=== PATIENT | male | born 1985 | race Caucasian/White ===

== ENCOUNTER 2018-06-02 14:33 | Emergency (ER) | payer MEDICAID, MEDICARE, OTHER ==
[2018-06-02 14:43] VITALS: RESP 18
[2018-06-02] MEDS ORDERED: MORPHINE SULFATE 4 MG/ML SYRINGE IM STA (14:50)
--- NOTE | 2018-06-02 14:54 | ED ---
General Adult HPI - General Chief complaint: Urogenital Stated complaint: Male Gu Time Seen by Provider: 06/02/18 14:45 Source: patient, RN notes reviewed Mode of arrival: ambulatory Limitations: no limitations - History of Present Illness Initial comments: Patient 33-year-old male presented to the emergency room today with a chief complaint of right testicular vein ulcer yesterday at noon. Patient states that he noticed some discomfort starting around noon yesterday. Patient states that pain has persisted and worsened today. States been located on the right side. States worse with ambulation. Patient denies any other complaints or symptoms. Patient denies any recent fever, chills, shortness of breath, chest pain, back pain, abdominal pain, nausea or vomiting, constipation or diarrhea, headaches or visual changes, or any other complaints. - Related Data Previous Rx's Medication Instructions Recorded Doxycycline Hyclate [Vibramycin] 100 mg PO BID 10 Days cap 06/02/18 Phenazopyridine [Pyridium] 100 mg PO TID 3 Days day 06/02/18 Allergies Allergy/AdvReac Type Severity Reaction Status Date / Time haloperidol [From Haldol] Allergy Unknown Verified 06/02/18 14:44 haloperidol lactate Allergy Unknown Verified 06/02/18 14:44 [From Haldol] Review of Systems ROS Statement: Those systems with pertinent positive or pertinent negative responses have been documented in the HPI. ROS Other: All systems not noted in ROS Statement are negative. Past Medical History Past Medical History: No Reported History History of Any Multi-Drug Resistant Organisms: None Reported Past Surgical History: No Surgical Hx Reported Past Psychological History: Bipolar, Depression, Schizoaffective Disorder, Schizophrenia Smoking Status: Current every day smoker Past Alcohol Use History: Occasional Past Drug Use History: None Reported - Past Family History Father Family Medical History: No Reported History Mother Family Medical History: No Reported History General Exam - General Exam Comments Initial Comments: General: The patient is awake and alert, in no distress, and does not appear acutely ill. Eye: Pupils are equal, round and reactive to light, extra-ocular movements are intact. No nystagmus. There is normal conjunctiva bilaterally. No signs of icterus. Ears, nose, mouth and throat: There are moist mucous membranes and no oral lesions. Neck: The neck is supple. Gastrointestinal: Soft, non-distended, non-tender abdomen without masses or organomegaly noted. There is no rebound or guarding present. No CVA tenderness. Musculoskeletal: Normal ROM, no tenderness. Strength 5/5. Sensation intact. Neurological: A&O x 3. CN II-XII intact, There are no obvious motor or sensory deficits. Coordination appears grossly intact. Speech is normal. Skin: Skin is warm and dry and no rashes or lesions are noted. Psychiatric: Cooperative, appropriate mood & affect, normal judgment. : Circumcised male. Tender palpation right testicle. Mild swelling. Limitations: no limitations Course Vital Signs 06/02/18 14:42 Temperature 97.9 F Pulse Rate 102 H Respiratory 18 Rate Blood Pressure 118/66 O2 Sat by Pulse 100 Oximetry Medical Decision Making - Medical Decision Making Patient's ultrasound reviewed and does show evidence for a epididymitis or orchitis on the right side. No evidence for testicular torsion. Patient's urinalysis review does show 63 white cells. Patient states there is some concern for possible STD. Patient does have cultures that are pending at this time. Patient will be given dose of Rocephin and azithromycin here in emergency room. Patient will be discharged home on doxycycline. He is advised follow-up with family physician. Advised no sexual contact until symptoms have resolved. Advised return to emergency room if any symptoms increase worsen or for any other concerns. - Lab Data Lab Results 06/02/18 Range/Units 15:50 Urine Color Dark Yellow Urine Appearance Clear (Clear) Urine pH 6.0 (5.0-8.0) Ur Specific [place] 1.027 (1.001-1.035) Urine Protein 1+ H (Negative) Urine Glucose (UA) 3+ H (Negative) Urine Ketones 1+ H (Negative) Urine Blood Negative (Negative) Urine Nitrite Negative (Negative) Urine Bilirubin 1+ H (Negative) Urine Urobilinogen 12.0 (<2.0) mg/dL Ur Leukocyte Esterase Large H (Negative) Urine WBC 63 H (0-5) /hpf Ur Squamous Epith Cells <1 (0-4) /hpf Urine Bacteria Rare H (None) /hpf Urine Mucus Few H (None) /hpf Disposition Clinical Impression: Epididymitis Disposition: HOME SELF-CARE Condition: Good Instructions: Epididymo-Orchitis (ED) Additional Instructions: Please use medication as discussed. Please follow-up with family doctor in the next 2 days. Please return to emergency room if the symptoms increase or worsen or for any other concerns. Prescriptions: Doxycycline Hyclate [Vibramycin] 100 mg PO BID 10 Days cap Phenazopyridine [Pyridium] 100 mg PO TID 3 Days day Is patient prescribed a controlled substance at d/c from ED?: No Referrals: None,Stated [Primary Care Provider] - 1-2 days Gerry Fernandez MD [STAFF PHYSICIAN] - 1-2 days Dean Loomis MD [STAFF PHYSICIAN] - 1-2 days Time of Disposition: 16:51
--- NOTE | 2018-06-02 16:18 | US ---
EXAMINATION TYPE: US scrotum with doppler. Grayscale and color Doppler Duplex imaging performed of t hilario scrotum. DATE OF EXAM: 06/02/2018 COMPARISON: NONE CLINICAL HISTORY: Pain. EXAM MEASUREMENTS: TESTICLES: Right Testicle: 4.0 x 2.0 x 4.1 cm Left Testicle: 4.4 x 1.7 x 3.2 cm EPIDIDYMIS HEAD: Right Epididymis: 0.9 cm Left Epididymis: 1.0 cm Doppler performed to assess for testicular vascularity; good bilateral color flow and waveforms are s een. However, there does appear to be increased flow to the right testicle and to tissue inferior to testicle. Presence of hydroceles: Yes, small bilaterally Presence of varicoceles: No Subcentimeter cysts noted bilateral epididymis'. Comparison images initially performed. IMPRESSION: Asymmetric slight increased flow to right testicle could reflect product of right-sided e pididymitis/orchitis if this is the side of patient's pain. Correlate clinically.
[2018-06-02 16:26] LABS: Appearance,Urine Clear (Clear); Bacteria,Urine Rare /hpf; Bilirubin,Urine 1+ (Negative); Blood,Urine Negative (Negative); Color,Urine Dark Yellow; Glucose,Urine (UA) 3+ (Negative); Ketones,Urine 1+ (Negative); Leukocyte Esterase,Urine Large (Negative); Mucus,Urine Few /hpf; Nitrite,Urine Negative (Negative); Protein,Urine 1+ (Negative); Specific Gravity,Urine 1.027 (1.001-1.035); Squamous Epithelial Cell,Urine <1 /hpf (0-4); WBC,Urine 63 /hpf (0-5)
[2018-06-02] MEDS ORDERED: AZITHROMYCIN 500 MG TAB PO STA (16:47)
[2018-06-02] MEDS ORDERED: cefTRIAXone 250 MG VIAL IM STA (16:47)
[2018-06-02 17:17] VITALS: BP 127/89; PULSE 87; TEMP 97.4
[2018-06-04 14:08] LABS: C. trachomatis,PCR Negative (Neg,Equiv); Chlamydia trachomatis Source Urine; N. gonorrhoeae,PCR Negative (Neg,Equiv); Neisseria Source Urine
== END 2018-06-02 17:17 | disposition home or self-care (01) ==
LOC: EC 14:33
DX: N45.1 Epididymitis (principal); F17.200 Nicotine dependence, unspecified, uncomplicated; Z88.8 Allergy status to other drugs, medicaments and biological substances
CPT/HCPCS: 81001; 87491; 87591; 87086; 87077; 87186; 93975; 76870; 99284; 96372 ×2; J2270; J0696

== ENCOUNTER 2018-06-16 13:32 | Inpatient (IN) | payer MEDICARE ==
[2018-06-16] MEDS ORDERED: SODIUM CHLORIDE 0.9% 2,000 ML IV ONE (13:59)
--- NOTE | 2018-06-16 14:22 | ED ---
Psych HPI - General Chief Complaint: Psychiatric Symptoms Stated Complaint: MENTAL HEALTH Time Seen by Provider: 06/16/18 13:32 Source: patient, RN notes reviewed Mode of arrival: ambulatory - History of Present Illness Initial Comments: This is a 33-year-old male history depression who states he is depressed wants comes on he did cut his right antecubital space 3 days ago with a knife. He states he was in bed the past several days not eating and drinking very much. He states that he believes his body turned black after this initial episode. He states he did lose a lot of blood. He still states he is depressed and suicidal. He denies any drug or alcohol use. MD Complaint: suicidal ideation, feels depressed - Related Data Previous Rx's Medication Instructions Recorded Doxycycline Hyclate [Vibramycin] 100 mg PO BID 10 Days cap 06/02/18 Phenazopyridine [Pyridium] 100 mg PO TID 3 Days day 06/02/18 Allergies Allergy/AdvReac Type Severity Reaction Status Date / Time haloperidol [From Haldol] Allergy Unknown Verified 06/16/18 13:45 haloperidol lactate Allergy Unknown Verified 06/16/18 13:45 [From Haldol] Review of Systems ROS Statement: Those systems with pertinent positive or pertinent negative responses have been documented in the HPI. ROS Other: All systems not noted in ROS Statement are negative. Past Medical History Past Medical History: No Reported History History of Any Multi-Drug Resistant Organisms: None Reported Past Surgical History: No Surgical Hx Reported Past Psychological History: Bipolar, Depression, Schizoaffective Disorder, Schizophrenia Smoking Status: Current every day smoker Past Alcohol Use History: Occasional Past Drug Use History: None Reported - Past Family History Father Family Medical History: No Reported History Mother Family Medical History: No Reported History General Exam - General Exam Comments Initial Comments: This is a well-developed well-nourished awake alert oriented times female Limitations: no limitations General appearance: alert, in no apparent distress Head exam: Present: atraumatic, normocephalic, normal inspection Eye exam: Present: normal appearance, PERRL, EOMI. Absent: scleral icterus, conjunctival injection, periorbital swelling ENT exam: Present: mucous membranes dry Neck exam: Present: normal inspection. Absent: tenderness, meningismus, lymphadenopathy Respiratory exam: Present: normal lung sounds bilaterally. Absent: respiratory distress, wheezes, rales, rhonchi, stridor Cardiovascular Exam: Present: regular rate, normal rhythm, normal heart sounds. Absent: systolic murmur, diastolic murmur, rubs, gallop, clicks GI/Abdominal exam: Present: soft, normal bowel sounds. Absent: distended, tenderness, guarding, rebound, rigid Extremities exam: Present: full ROM, normal capillary refill, other (There is approximately 3 cm laceration of the antecubital space on the left side no active bleeding no formed by seen no evidence of any infection. It does appear to be clear/clean). Absent: tenderness, pedal edema, joint swelling, calf tenderness Back exam: Present: normal inspection Neurological exam: Present: alert, oriented X3, CN II-XII intact Psychiatric exam: Present: depressed, suicidal ideation Skin exam: Present: warm, dry, intact, normal color. Absent: rash Course Vital Signs 06/16/18 13:40 Temperature 97.8 F Pulse Rate 83 Respiratory 16 Rate Blood Pressure 118/69 O2 Sat by Pulse 98 Oximetry Medical Decision Making - Medical Decision Making The patient is feeling improved he was evaluated by psychiatric service and will be admitted for inpatient treatment. At this time the wound is 3 days old and will be treated conservatively healing. - Lab Data Result diagrams: 06/16/18 14:00 06/16/18 14:00 Lab Results 06/16/18 06/16/18 06/16/18 Range/Units 14:00 14:00 14:00 WBC 10.6 (3.8-10.6) k/uL RBC 3.50 L (4.30-5.90) m/uL Hgb 11.3 L (13.0-17.5) gm/dL Hct 32.0 L (39.0-53.0) % MCV 91.4 (80.0-100.0) fL MCH 32.4 (25.0-35.0) pg MCHC 35.5 (31.0-37.0) g/dL RDW 14.6 (11.5-15.5) % Plt Count 296 (150-450) k/uL Neutrophils % 81 % Lymphocytes % 12 % Monocytes % 6 % Eosinophils % 0 % Basophils % 0 % Neutrophils # 8.6 H (1.3-7.7) k/uL Lymphocytes # 1.2 (1.0-4.8) k/uL Monocytes # 0.6 (0-1.0) k/uL Eosinophils # 0.0 (0-0.7) k/uL Basophils # 0.0 (0-0.2) k/uL Manual Slide Review Performed Hyperchromasia Slight Sodium 131 L (137-145) mmol/L Potassium 4.5 (3.5-5.1) mmol/L Chloride 98 (98-107) mmol/L Carbon Dioxide 20 L (22-30) mmol/L Anion Gap 13 mmol/L BUN 24 H (9-20) mg/dL Creatinine 0.95 (0.66-1.25) mg/dL Est GFR (CKD-EPI)AfAm >90 (>60 ml/min/1.73 sqM) Est GFR (CKD-EPI)NonAf >90 (>60 ml/min/1.73 sqM) Glucose 77 (74-99) mg/dL Calcium 9.1 (8.4-10.2) mg/dL Magnesium 2.1 (1.6-2.3) mg/dL Total Bilirubin 0.7 (0.2-1.3) mg/dL AST 40 (17-59) U/L ALT 45 (21-72) U/L Alkaline Phosphatase 47 (38-126) U/L Total Creatine Kinase 87 (55-170) U/L CK-MB (CK-2) 0.9 (0.0-2.4) ng/mL CK-MB (CK-2) Rel Index 1.0 Total Protein 5.6 L (6.3-8.2) g/dL Albumin 3.7 (3.5-5.0) g/dL Urine Opiates Screen (NotDetected) Ur Oxycodone Screen (NotDetected) Urine Methadone Screen (NotDetected) Ur Propoxyphene Screen (NotDetected) Ur Barbiturates Screen (NotDetected) U Tricyclic Antidepress (NotDetected) Ur Phencyclidine Scrn (NotDetected) Ur Amphetamines Screen (NotDetected) U Methamphetamines Scrn (NotDetected) U Benzodiazepines Scrn (NotDetected) Urine Cocaine Screen (NotDetected) U Marijuana (THC) Screen (NotDetected) 06/16/18 Range/Units 15:00 WBC (3.8-10.6) k/uL RBC (4.30-5.90) m/uL Hgb (13.0-17.5) gm/dL Hct (39.0-53.0) % MCV (80.0-100.0) fL MCH (25.0-35.0) pg MCHC (31.0-37.0) g/dL RDW (11.5-15.5) % Plt Count (150-450) k/uL Neutrophils % % Lymphocytes % % Monocytes % % Eosinophils % % Basophils % % Neutrophils # (1.3-7.7) k/uL Lymphocytes # (1.0-4.8) k/uL Monocytes # (0-1.0) k/uL Eosinophils # (0-0.7) k/uL Basophils # (0-0.2) k/uL Manual Slide Review Hyperchromasia Sodium (137-145) mmol/L Potassium (3.5-5.1) mmol/L Chloride (98-107) mmol/L Carbon Dioxide (22-30) mmol/L Anion Gap mmol/L BUN (9-20) mg/dL Creatinine (0.66-1.25) mg/dL Est GFR (CKD-EPI)AfAm (>60 ml/min/1.73 sqM) Est GFR (CKD-EPI)NonAf (>60 ml/min/1.73 sqM) Glucose (74-99) mg/dL Calcium (8.4-10.2) mg/dL Magnesium (1.6-2.3) mg/dL Total Bilirubin (0.2-1.3) mg/dL AST (17-59) U/L ALT (21-72) U/L Alkaline Phosphatase (38-126) U/L Total Creatine Kinase (55-170) U/L CK-MB (CK-2) (0.0-2.4) ng/mL CK-MB (CK-2) Rel Index Total Protein (6.3-8.2) g/dL Albumin (3.5-5.0) g/dL Urine Opiates Screen Not Detected (NotDetected) Ur Oxycodone Screen Not Detected (NotDetected) Urine Methadone Screen Not Detected (NotDetected) Ur Propoxyphene Screen Not Detected (NotDetected) Ur Barbiturates Screen Not Detected (NotDetected) U Tricyclic Antidepress Not Detected (NotDetected) Ur Phencyclidine Scrn Not Detected (NotDetected) Ur Amphetamines Screen Not Detected (NotDetected) U Methamphetamines Scrn Not Detected (NotDetected) U Benzodiazepines Scrn Not Detected (NotDetected) Urine Cocaine Screen Not Detected (NotDetected) U Marijuana (THC) Screen Not Detected (NotDetected) Disposition Clinical Impression: Depression, Suicidal ideation, Laceration of left upper arm Disposition: TRANSFER TO PSYCH HOSP/UNIT Condition: Stable Referrals: None,Stated [Primary Care Provider] - 1-2 days
[2018-06-16 14:23] LABS: ALT 45 U/L (21-72); AST 40 U/L (17-59); Albumin 3.7 g/dL (3.5-5.0); Alkaline Phosphatase 47 U/L (38-126); Anion Gap 13 mmol/L; Blood Urea Nitrogen 24 mg/dL (9-20); Calcium 9.1 mg/dL (8.4-10.2); Carbon Dioxide 20 mmol/L (22-30); Chloride 98 mmol/L (98-107); Glucose 77 mg/dL (74-99); Magnesium 2.1 mg/dL (1.6-2.3); Potassium 4.5 mmol/L (3.5-5.1); Sodium 131 mmol/L (137-145); Total Bilirubin 0.7 mg/dL (0.2-1.3); Total Protein 5.6 g/dL (6.3-8.2)
[2018-06-16 14:26] LABS: Basophils % (A) 0 %; Eosinophils % (A) 0 %; HGB 11.3 gm/dL (13.0-17.5); Hyperchromasia Slight; Lymphocytes # (A) 1.2 k/uL (1.0-4.8); Lymphocytes % (A) 12 %; MCH 32.4 pg (25.0-35.0); MCHC 35.5 g/dL (31.0-37.0); MCV 91.4 fL (80.0-100.0); Mean Platelet Volume 7.4; Monocytes # (A) 0.6 k/uL (0-1.0); Monocytes % (A) 6 %; Neutrophils # (A) 8.6 k/uL (1.3-7.7); Neutrophils % (A) 81 %; Platelet Count 296 k/uL (150-450); RDW 14.6 % (11.5-15.5); WBC 10.6 k/uL (3.8-10.6)
[2018-06-16 14:40] LABS: Creatine Kinase MB 0.9 ng/mL (0.0-2.4)
[2018-06-16 15:42] LABS: Amphetamine Screen,Urine Not Detected (NotDetected); Barbiturate Screen,Urine Not Detected (NotDetected); Benzodiazepines Screen,Urine Not Detected (NotDetected); Cocaine Screen,Urine Not Detected (NotDetected); Methadone Screen, Urine Not Detected (NotDetected); Opiate Screen,Urine Not Detected (NotDetected); Oxycodone Screen, Urine Not Detected (NotDetected); Phencyclidine Screen,Urine Not Detected (NotDetected); Tricyclic Antidepressant,Urine Not Detected (NotDetected); Urn Cannabinoid Scrn Not Detected (NotDetected)
[2018-06-16] MEDS ORDERED: PNEUMOCOCCAL VACC-PNEUMOVAX 23 25 MCG/0.5 ML VIAL IM ONE (16:53)
[2018-06-16] MEDS ORDERED: TETANUS-DIPHTHERIA TOX (PF) 0.5 ML VIAL IM ONE (17:51)
[2018-06-16] MEDS ORDERED: ZIPRASIDONE 20 MG VIAL IM PRN (18:01)
[2018-06-16] MEDS ORDERED: MAG HYDROX/AL HYDROX/SIMETH 30 ML CUP PO PRN (18:01)
[2018-06-16] MEDS ORDERED: MAGNESIUM HYDROXIDE 2,400 MG/10 ML CUP PO PRN (18:01)
[2018-06-16] MEDS ORDERED: LORazepam 2 MG/ML INJ IM PRN (18:04)
--- NOTE | 2018-06-16 18:07 | P.HPMEDMHU ---
History of Present Illness H&P Date: 06/16/18 Chief Complaint: consult for HPI The patient is a 33-year-old male with a past history of bipolar disorder with psychotic features who states that he is increasingly depressed and came here due to suicidal ideation and trying to kill himself. Apparently the patient started his left antecubital fossa 3 days ago and reportedly passed out. The patient reported to the intake nurse that he was aliens then brought back because his blood was too thick. The patient reports ongoing command hallucinations. She reports being compliant with his Zyprexa but has been off his Lexapro for at least 2 weeks. Patient denies any other complaints, review of his chart indicates the patient was recently here proximally 2 weeks ago where he was diagnosed with epididymal orchitis and discharged home on doxycycline, also apparently the patient had a Klebsiella oxytoca urinary tract infection that was also sensitive to tetracyclines. Patient reports a history of recreational drug abuse reports to using methamphetamine approximately 3 days ago, he denies any alcohol use. On review of admission labs patient is noted to be mildly anemic with hemoglobin of 11.3, and mildly hyponatremic with a sodium of 131. UDS was negative Past Medical History Past Medical History: No Reported History History of Any Multi-Drug Resistant Organisms: None Reported Past Surgical History: No Surgical Hx Reported Past Anesthesia/Blood Transfusion Reactions: No Reported Reaction Past Psychological History: Bipolar, Depression, Schizoaffective Disorder, Schizophrenia Smoking Status: Current every day smoker Past Alcohol Use History: Occasional Additional Past Alcohol Use History / Comment(s): He is a smoker one pack per day for 12 years. Past Drug Use History: None Reported Additional Drug Use History / Comment(s): history of etoh and cocaine abuse - Past Family History Father Family Medical History: No Reported History Mother Family Medical History: No Reported History Medications and Allergies Home Medications Medication Instructions Recorded Confirmed Type Escitalopram [Lexapro] 20 mg PO DAILY 06/16/18 06/16/18 History OLANZapine [ZyPREXA] 20 mg PO HS 06/16/18 06/16/18 History Allergies Allergy/AdvReac Type Severity Reaction Status Date / Time haloperidol [From Haldol] Allergy Unknown Verified 06/16/18 16:52 haloperidol lactate Allergy Unknown Verified 06/16/18 16:52 [From Haldol] Physical Exam Vitals: Vital Signs Temp Pulse Pulse Resp BP BP Pulse Ox 06/16/18 16:42 97.3 F L 101 H 18 107/60 06/16/18 16:14 97.8 F 81 16 120/63 100 06/16/18 13:40 97.8 F 83 16 118/69 98 Intake and Output 06/16/18 06/16/18 06/16/18 06:59 14:59 22:59 Other: Weight 68.039 kg 67.727 kg Constitutional: No acute distress, conversant, pleasant Eyes: Anicteric sclerae, moist conjunctiva, no lid-lag, PERRLA ENMT: NC/AT,Oropharynx clear, no erythema, exudates Neck:Supple, FROM, no masses, or JVD, No carotid bruits; No thyromegaly Lungs: Clear to auscultation, Clear to percussion, Normal respiratory effort, no accessory muscle use Cardiovascular: Heart regular in rate and rhythm, No murmurs, gallops, or rubs no peripheral edema Abdominal: Soft Nontender, nom distended, no guarding, no rebound or rigidity, Normoactive bowel sounds No hepatomegaly, No splenomegaly, No palpable mass No abdominal wall hernia noted Skin: Left antecubital laceration measuring approximately 4 cm that appears deeper on the medial side of the laceration, there is beefy tissue, without any clear-cut sign of infection Extremities:No digital cyanosis No clubbing, Pedal pulses intact and symmetrical Radial pulses intact and symmetrical Normal gait and station, No calf tenderness Psychiatric: Alert and oriented to person, place and time, Appropriate affect Intact judgement Neuro: Muscles Strength 5/5 in all 4 extremities, Sensation to light touch grossly present throughout, Cranial nerves II-XII grossly intact. No focal sensory deficits Cranial Nerve Examination - Cranial Nerves Cranial Nerve II- Optic: Intact Cranial Nerve III- Oculomotor: Intact Cranial Nerve IV- Trochlear: Intact Cranial Nerve V- Trigeminal: Intact Cranial Nerve - Abducens: Intact Cranial Nerve VII- Facial: Intact Cranial Nerve VIII- Auditory: Intact Cranial Nerve IX- Glossopharyngeal: Intact Cranial Nerve X- Vagus: Intact Cranial Nerve XI- Accessory: Intact Cranial Nerve XII- Hypoglossal: Intact Results CBC & Chem 7: 06/16/18 14:00 06/16/18 14:00 Labs: Abnormal Lab Results - Last 24 Hours (Table) 06/16/18 06/16/18 Range/Units 14:00 14:00 RBC 3.50 L (4.30-5.90) m/uL Hgb 11.3 L (13.0-17.5) gm/dL Hct 32.0 L (39.0-53.0) % Neutrophils # 8.6 H (1.3-7.7) k/uL Sodium 131 L (137-145) mmol/L Carbon Dioxide 20 L (22-30) mmol/L BUN 24 H (9-20) mg/dL Total Protein 5.6 L (6.3-8.2) g/dL Thrombosis Risk Factor Assmnt - Choose All That Apply Any of the Below Risk Factors Present?: No Other Risk Factors: No Other congenital or acquired thrombophilia - If yes, enter type in comment: No Thrombosis Risk Factor Assessment Level: Very Low Risk Assessment and Plan (1) Schizo-affective psychosis Current Visit: Yes Status: Acute Code(s): F25.9 - SCHIZOAFFECTIVE DISORDER, UNSPECIFIED SNOMED Code(s): 53430616 (2) Suicidal ideation Current Visit: Yes Status: Acute Code(s): R45.851 - SUICIDAL IDEATIONS SNOMED Code(s): 7282878 (3) Depression Current Visit: Yes Status: Acute Code(s): F32.9 - MAJOR DEPRESSIVE DISORDER , SINGLE EPISODE, UNSPECIFIED SNOMED Code(s): 25196446 (4) Laceration of left upper arm Current Visit: Yes Status: Acute Code(s): S41.112A - LACERATION W/O FOREIGN BODY OF LEFT UPPER ARM, INIT ENCNTR SNOMED Code(s): 211718415 (5) Hyponatremia Current Visit: Yes Status: Acute Code(s): E87.1 - HYPO-OSMOLALITY AND HYPONATREMIA SNOMED Code(s): 05003236 Plan: The patient is admitted to the mental health unit for acute exacerbation of psychosis of his schizoaffective disorder, will defer to primary team regarding ongoing use of psychotropic agents along with CBT for his treatment. Given patient's severe left antecubital laceration will consult general surgery as it appears the patient may need to have sutures, we'll give the patient IM tetanus shot and deferred to general surgery regarding wound care and follow-up. Otherwise patient appears medically stable we'll plan to sign off. For further questions or concerns please don't hesitate to contact the sound inpatient team. We Appreciate the opportunity to be involved ongoing care of this patient
[2018-06-16] MEDS: OLANZapine 10 MG TAB PO SCH (20:21)
[2018-06-17] MEDS: NICOTINE 14MG/24HR PATCH TRANSDERM SCH (08:36)
[2018-06-17] MEDS: ESCITALOPRAM 5 MG TAB PO SCH (11:03)
--- NOTE | 2018-06-17 11:14 | P.HP ---
Psychiatric H&P - . H&P Date: 06/17/18 History & Physical: Allergies Allergy/AdvReac Type Severity Reaction Status Date / Time haloperidol [From Haldol] Allergy Unknown Verified 06/16/18 16:52 haloperidol lactate Allergy Unknown Verified 06/16/18 16:52 [From Haldol] Vital Signs Temp 97.8 F 06/17/18 06:38 Pulse 70 06/17/18 06:38 Resp 15 06/17/18 06:38 BP 90/55 06/17/18 06:38 Pulse Ox 100 06/16/18 16:14 Intake & Output 06/16/18 06/17/18 06/17/18 18:59 06:59 18:59 Weight 67.727 kg 68.9 kg Laboratory Last Values WBC 10.6 k/uL (3.8-10.6) 06/16/18 14:00 RBC 3.50 m/uL (4.30-5.90) L 06/16/18 14:00 Hgb 11.3 gm/dL (13.0-17.5) L 06/16/18 14:00 Hct 32.0 % (39.0-53.0) L 06/16/18 14:00 MCV 91.4 fL (80.0-100.0) 06/16/18 14:00 MCH 32.4 pg (25.0-35.0) 06/16/18 14:00 MCHC 35.5 g/dL (31.0-37.0) 06/16/18 14:00 RDW 14.6 % (11.5-15.5) 06/16/18 14:00 Plt Count 296 k/uL (150-450) 06/16/18 14:00 Neutrophils % 81 % 06/16/18 14:00 Lymphocytes % 12 % 06/16/18 14:00 Monocytes % 6 % 06/16/18 14:00 Eosinophils % 0 % 06/16/18 14:00 Basophils % 0 % 06/16/18 14:00 Neutrophils # 8.6 k/uL (1.3-7.7) H 06/16/18 14:00 Lymphocytes # 1.2 k/uL (1.0-4.8) 06/16/18 14:00 Monocytes # 0.6 k/uL (0-1.0) 06/16/18 14:00 Eosinophils # 0.0 k/uL (0-0.7) 06/16/18 14:00 Basophils # 0.0 k/uL (0-0.2) 06/16/18 14:00 Manual Slide Review Performed 06/16/18 14:00 Hyperchromasia Slight 06/16/18 14:00 Sodium 131 mmol/L (137-145) L 06/16/18 14:00 Potassium 4.5 mmol/L (3.5-5.1) 06/16/18 14:00 Chloride 98 mmol/L (98-107) 06/16/18 14:00 Carbon Dioxide 20 mmol/L (22-30) L 06/16/18 14:00 Anion Gap 13 mmol/L 06/16/18 14:00 BUN 24 mg/dL (9-20) H 06/16/18 14:00 Creatinine 0.95 mg/dL (0.66-1.25) 06/16/18 14:00 Est GFR (CKD-EPI)AfAm >90 (>60 ml/min/1.73 sqM) 06/16/18 14:00 Est GFR (CKD-EPI)NonAf >90 (>60 ml/min/1.73 sqM) 06/16/18 14:00 Glucose 77 mg/dL (74-99) 06/16/18 14:00 Calcium 9.1 mg/dL (8.4-10.2) 06/16/18 14:00 Magnesium 2.1 mg/dL (1.6-2.3) 06/16/18 14:00 Total Bilirubin 0.7 mg/dL (0.2-1.3) 06/16/18 14:00 AST 40 U/L (17-59) 06/16/18 14:00 ALT 45 U/L (21-72) 06/16/18 14:00 Alkaline Phosphatase 47 U/L (38-126) 06/16/18 14:00 Total Creatine Kinase 87 U/L (55-170) 06/16/18 14:00 CK-MB (CK-2) 0.9 ng/mL (0.0-2.4) 06/16/18 14:00 CK-MB (CK-2) Rel Index 1.0 06/16/18 14:00 Total Protein 5.6 g/dL (6.3-8.2) L 06/16/18 14:00 Albumin 3.7 g/dL (3.5-5.0) 06/16/18 14:00 Triglycerides 187 mg/dL (<150) H 06/16/18 14:00 Cholesterol 146 mg/dL (<200) 06/16/18 14:00 LDL Cholesterol, Calc 69 mg/dL (0-99) 06/16/18 14:00 HDL Cholesterol 40 mg/dL (40-60) 06/16/18 14:00 TSH 1.350 mIU/L (0.465-4.680) 06/16/18 14:00 Urine Opiates Screen Not Detected (NotDetected) 06/16/18 15:00 Ur Oxycodone Screen Not Detected (NotDetected) 06/16/18 15:00 Urine Methadone Screen Not Detected (NotDetected) 06/16/18 15:00 Ur Propoxyphene Screen Not Detected (NotDetected) 06/16/18 15:00 Ur Barbiturates Screen Not Detected (NotDetected) 06/16/18 15:00 U Tricyclic Antidepress Not Detected (NotDetected) 06/16/18 15:00 Ur Phencyclidine Scrn Not Detected (NotDetected) 06/16/18 15:00 Ur Amphetamines Screen Not Detected (NotDetected) 06/16/18 15:00 U Methamphetamines Scrn Not Detected (NotDetected) 06/16/18 15:00 U Benzodiazepines Scrn Not Detected (NotDetected) 06/16/18 15:00 Urine Cocaine Screen Not Detected (NotDetected) 06/16/18 15:00 U Marijuana (THC) Screen Not Detected (NotDetected) 06/16/18 15:00 06/17/18 11:14 Identifying Information Patient is 33 year old male. He is single, no children. He lives alone in a one bedroom apartment. He supports himself with SSI. Chief complaint I tried to kill my self History of presenting illness Patient reports to have cut himself three days ago. He reports to have bled a lot and claims every time he woke up he passed out. He eventually was able to call for ambulance. He denies current suicidal or homicidal ideations. He however says he has no desire to live. He claims to have been depressed over the past two months. He reports low energy and low motivation. He reports feeling frustrated and angry. He reports there is lot going on in his life. He says every body around him are against him. He reports feeling depressed about not being able to provide food for himself. He says money from his bank accounts is missing. He says lot of weird things are going on in his life. He claims to have relapsed on methamphetamine use three days ago. He says meth helps him with keeping him motivated. He reports feeling frustrated about his SSI income being cut down two weeks ago. He complains of hearing voices telling him to cut himself. He currently reports hearing voices telling him about hypnosis. He reports history of visual hallucinations five years ago and denies current visual hallucinations. He denies current symptoms of vivi. He reports being diagnosed with bipolar disorder around the age of 22. He currently reports feeling tired/drained and anxious. He denies current paranoid thoughts. He reports good appetite. He reports waking up from sleep due to having dreams about hypnosis. He however states he is able to return back to sleep with in 10 minutes. Reports being complaint with zyprexa as prescribed . He claims to have stopped taking his lexapro two weeks ago. Past psychiatric history Reports being started on psychiatric medications following his first hospitalization around the age of 22. He stated his first hospitalization was due to hearing voices. He reports 10 psychiatric hospitalizations since the age of 22. His last admission was three years ago he says. He says most of his hospitalizations were due to suicidal ideations. He claims to have overdosed on pills in 2007. He says he follows up with Dr. Go in [facility]. He was last seen at [facility] three weeks ago he says. Substance use history Reports use of all sorts of illicit drugs from the age of 13. He claims to have stopped using illicit drugs three years ago. He claims to have relapsed on methamphetamine three days ago. He claims to have used two hits of meth. He denies rehab treatments. Legal problems On parole until November 2018. Reports being released from group home in November 2017. His charges were possession of methamphetamine and running a drug house. Family psychiatric treatment history Denies Medical history Claims to have smashed head when he was [age] year old and received stitches. Allergies No Known drug allergies Social history Born in [place], [place]. Raised by mother until he was in sixth grade, raised by his father from seventh grade onwards. He describes his childhood being yohana. Denies child walker history of abuse. He reports having one full brother and two half brothers. Graduated high-school and claims to have attended college for less than an year. Mental status exam 33 Year old male. Appeared his stated age. Dressed in hospital gown. Fair grooming and hygiene. His left elbow has dressing covering his wound. Per surgery wound is too deep. He is pleasant and co-operative. He maintains good eye contact. No abnormal movements noted. His speech and thought process were goal directed. His mood is reported as drained/tired and affect appropriate. He reports auditory hallucinations. He denies visual hallucinations and paranoia. He is alert and oriented X 4. His insight and judgment are limited. Diagnosis Major depression recurrent type with psychotic features Methamphetamine abuse Plan 33-year-old male admitted emergency department with suicidal ideations. He signed voluntary treatment consent. Medicine consult for initial history physical examination psychosocial evaluation. Will continue his out patient medications zyprexa and lexapro. He is currently reluctant to try higher dose of zyprexa. Monitor for symptoms Will receive milieu therapy group therapy individual therapy occupational therapy recreational therapy and psycho education. Treatment goals: Medication stabilization Social work to assist with discharge plans Insight improvement and encourage treatment adherence. development of better coping skills and substance use counseling/groups Discharge with outpatient follow-up. Treatment goals: Symptom reduction with improvement of global functioning will continue to be free of suicide thoughts and behavior.
--- NOTE | 2018-06-17 11:32 | P.GSCN ---
History of Present Illness Consult date: 06/17/18 Reason for Consult: Left arm wound History of present illness: Patient admitted after self-induced injury to the left arm. He was having suicidal ideations and paranoia. Patient cut his left antecubital fossa with a kitchen knife. This occurred proximally 4 days ago. In the ER this was not closed because of the duration of time that had passed. Patient states initially he felt a little bit of numbness in his arm however that has all since resolved. No weakness of the hand or arm. States his pain is improving. No fevers. Wound per the nursing staff is improved from yesterday. Review of Systems The patient denies any acute changes in vision or hearing, no dysphagia or odynophagia, no chest pain or shortness of breath, no dysuria or hematuria, no headache, no runny nose, no rectal bleeding or melena, no unexplained weight loss Past Medical History Past Medical History: No Reported History History of Any Multi-Drug Resistant Organisms: None Reported Past Surgical History: No Surgical Hx Reported Past Anesthesia/Blood Transfusion Reactions: No Reported Reaction Past Psychological History: Bipolar, Depression, Schizoaffective Disorder, Schizophrenia Smoking Status: Current every day smoker Past Alcohol Use History: Occasional Additional Past Alcohol Use History / Comment(s): He is a smoker one pack per day for 12 years. Past Drug Use History: None Reported Additional Drug Use History / Comment(s): history of etoh and cocaine abuse - Past Family History Father Family Medical History: No Reported History Mother Family Medical History: No Reported History Medications and Allergies Home Medications Medication Instructions Recorded Confirmed Type Escitalopram [Lexapro] 20 mg PO DAILY 06/16/18 06/16/18 History OLANZapine [ZyPREXA] 20 mg PO HS 06/16/18 06/16/18 History Allergies Allergy/AdvReac Type Severity Reaction Status Date / Time haloperidol [From Haldol] Allergy Unknown Verified 06/16/18 16:52 haloperidol lactate Allergy Unknown Verified 06/16/18 16:52 [From Haldol] Surgical - Exam Vital Signs Temp Pulse Resp BP Pulse Ox 97.8 F 83 16 118/69 98 06/16/18 13:40 06/16/18 13:40 06/16/18 13:40 06/16/18 13:40 06/16/18 13:40 Physical exam: General: Well-developed, well-nourished HEENT: Normocephalic, sclerae nonicteric Abdomen: Nontender, nondistended Extremities: 4 x 1 cm laceration left antecubital fossa, no bleeding, no erythema, mild tenderness, no visible tendon injury Neuro: Alert and oriented Results - Labs 06/16/18 14:00 06/16/18 14:00 Abnormal Lab Results - Last 24 Hours (Table) 06/16/18 06/16/18 06/16/18 Range/Units 14:00 14:00 14:00 RBC 3.50 L (4.30-5.90) m/uL Hgb 11.3 L (13.0-17.5) gm/dL Hct 32.0 L (39.0-53.0) % Neutrophils # 8.6 H (1.3-7.7) k/uL Sodium 131 L (137-145) mmol/L Carbon Dioxide 20 L (22-30) mmol/L BUN 24 H (9-20) mg/dL Total Protein 5.6 L (6.3-8.2) g/dL Triglycerides 187 H (<150) mg/dL Diabetes panel 06/16/18 06/16/18 Range/Units 14:00 14:00 Sodium 131 L (137-145) mmol/L Potassium 4.5 (3.5-5.1) mmol/L Chloride 98 (98-107) mmol/L Carbon Dioxide 20 L (22-30) mmol/L BUN 24 H (9-20) mg/dL Creatinine 0.95 (0.66-1.25) mg/dL Glucose 77 (74-99) mg/dL Calcium 9.1 (8.4-10.2) mg/dL AST 40 (17-59) U/L ALT 45 (21-72) U/L Alkaline Phosphatase 47 (38-126) U/L Total Protein 5.6 L (6.3-8.2) g/dL Albumin 3.7 (3.5-5.0) g/dL Triglycerides 187 H (<150) mg/dL HDL Cholesterol 40 (40-60) mg/dL Thyroid panel 06/16/18 Range/Units 14:00 TSH 1.350 (0.465-4.680) mIU/L Calcium panel 06/16/18 Range/Units 14:00 Calcium 9.1 (8.4-10.2) mg/dL Albumin 3.7 (3.5-5.0) g/dL Pituitary panel 06/16/18 06/16/18 Range/Units 14:00 14:00 Sodium 131 L (137-145) mmol/L Potassium 4.5 (3.5-5.1) mmol/L Chloride 98 (98-107) mmol/L Carbon Dioxide 20 L (22-30) mmol/L BUN 24 H (9-20) mg/dL Creatinine 0.95 (0.66-1.25) mg/dL Glucose 77 (74-99) mg/dL Calcium 9.1 (8.4-10.2) mg/dL TSH 1.350 (0.465-4.680) mIU/L Adrenal panel 06/16/18 Range/Units 14:00 Sodium 131 L (137-145) mmol/L Potassium 4.5 (3.5-5.1) mmol/L Chloride 98 (98-107) mmol/L Carbon Dioxide 20 L (22-30) mmol/L BUN 24 H (9-20) mg/dL Creatinine 0.95 (0.66-1.25) mg/dL Glucose 77 (74-99) mg/dL Calcium 9.1 (8.4-10.2) mg/dL Total Bilirubin 0.7 (0.2-1.3) mg/dL AST 40 (17-59) U/L ALT 45 (21-72) U/L Alkaline Phosphatase 47 (38-126) U/L Total Protein 5.6 L (6.3-8.2) g/dL Albumin 3.7 (3.5-5.0) g/dL Assessment and Plan (1) Laceration of left upper arm Narrative/Plan: Begin local wound care with Aquacel silver rope. No plans for closure. Current Visit: Yes Status: Acute Code(s): S41.112A - LACERATION W/O FOREIGN BODY OF LEFT UPPER ARM, INIT ENCNTR SNOMED Code(s): 960329646
[2018-06-17] MEDS: LORazepam 1 MG TAB PO PRN ×2 (11:50→20:16)
[2018-06-17] MEDS: OLANZapine 10 MG TAB PO SCH (20:16)
[2018-06-18] MEDS: ESCITALOPRAM 5 MG TAB PO SCH (09:08)
[2018-06-18] MEDS: NICOTINE 14MG/24HR PATCH TRANSDERM SCH (09:08)
[2018-06-18 09:53] VITALS: BMI 23.8
--- NOTE | 2018-06-18 10:26 | P.PN ---
Progress Note - Text Interval history: The patient is found in his room he follows me to an interview room. The psychiatric evaluation no was reviewed as well as the psychiatric evaluation from 2014. The patient presented after lacerating his left antecubital fossa. He states that it was a suicide attempt as he felt overwhelmed by feelings of paranoia and hallucinations. He was evaluated by internal medicine as well as surgery. The wound was not closed as he presented days after the laceration. He reports feeling overwhelmed still by hallucinations. He feels the Zyprexa is ineffective for the symptoms. He describes being on numerous other antipsychotics in the past. He felt Prolixin was the most helpful in reducing the symptoms but he does not like the injected form. Mental status exam: The patient is a thin male his head is shaved he is dressed in his own clothing. Eye contact is intermittent. He describes feeling distraught. He feels overwhelmed by hallucinations that have been commanding in the past. He reports paranoid thoughts. He states that he has woken up with bruises and doesn't know how they got there. Insight and judgment impaired. He seated calmly in the chair he demonstrates no verbal or physical aggressiveness. He maintains a blunted affect. He demonstrates no abnormal involuntary movements. He states he feels safe in the hospital. He describes no thoughts of harming others. Plan: The patient reports ongoing hallucinations even in the context of taking his Zyprexa 20 mg at bedtime. We will initiate Prolixin 5 mg daily. We may cross taper him off of the Zyprexa on to an increased dose of Prolixin. We will monitor him for safety and encourage his participation in the milieu. Vital signs reviewed.
[2018-06-18 10:40] LABS: Anion Gap 5 mmol/L; Blood Urea Nitrogen 11 mg/dL (9-20); Calcium 8.9 mg/dL (8.4-10.2); Carbon Dioxide 26 mmol/L (22-30); Chloride 107 mmol/L (98-107); Glucose 75 mg/dL (74-99); Potassium 3.9 mmol/L (3.5-5.1); Sodium 138 mmol/L (137-145)
[2018-06-18] MEDS: ACETAMINOPHEN TAB 325 MG TAB PO PRN (12:07)
[2018-06-18 15:07] LABS: Hemoglobin A1C 4.8 % (4.0-6.0)
[2018-06-18 15:07] LABS: Appearance,Urine Clear (Clear); Bilirubin,Urine Negative (Negative); Blood,Urine Negative (Negative); Color,Urine Light Yellow; Glucose,Urine (UA) Negative (Negative); Ketones,Urine Negative (Negative); Leukocyte Esterase,Urine Negative (Negative); Nitrite,Urine Negative (Negative); PH, Urine 5.5 (5.0-8.0); Protein,Urine Negative (Negative); Specific Gravity,Urine 1.004 (1.001-1.035); Urobilinogen,Urine <2.0 mg/dL (<2.0)
[2018-06-18] MEDS: OLANZapine 10 MG TAB PO SCH (20:17)
[2018-06-18] MEDS: LORazepam 1 MG TAB PO PRN (20:17)
[2018-06-19] MEDS: NICOTINE 14MG/24HR PATCH TRANSDERM SCH (08:17)
[2018-06-19] MEDS: ESCITALOPRAM 5 MG TAB PO SCH (08:18)
--- NOTE | 2018-06-19 11:02 | P.PN ---
Progress Note - Text Interval history: The patient is found in the self lounge he follows me to an interview room. He reports that he feels better today. He states this morning was the first time that he did not have auditory hallucinations and quite some time. He reports sleeping last night appetite is stable. Staff report that he is cooperative with his wound care. He has started participating in groups. Mental status exam: The patient is a male appearing his stated age. He is dressed in his own clothing. He is cooperative. He seated calmly in the chair. He provides verbal responses to questions asked but has no spontaneous speech. He is reporting continued hopelessness thoughts. He states he is trying to decide that he has to live and just be okay with it. He demonstrates no verbal or physical aggressiveness. He demonstrates no abnormal involuntary movements. Insight and judgment limited. He is reporting no homicidal ideation intent or plan. Plan: The patient will continue on his current medication. We will monitor him for safety. He requires continued psychiatric hospitalization. He is encouraged to continue participating in the milieu for coping skill development.
[2018-06-19] MEDS: LORazepam 1 MG TAB PO PRN (19:38)
[2018-06-19] MEDS: OLANZapine 10 MG TAB PO SCH (20:47)
[2018-06-20] MEDS: NICOTINE 14MG/24HR PATCH TRANSDERM SCH (08:33)
[2018-06-20] MEDS: ESCITALOPRAM 5 MG TAB PO SCH (08:33)
--- NOTE | 2018-06-20 09:55 | P.PN ---
Progress Note - Text Interval history: The patient is found in his room he follows me to an interview room. He reports that his mood was irritable yesterday as he did have a few hours with derogatory auditory hallucinations. He states he is not hearing any at this time. He does feel that the Prolixin makes him excessively tired in the morning and we discussed moving that to at bedtime dosing. He has not attended groups this morning yet he is encouraged to do so. Appetite stable. He reports sleeping at night. Mental status exam: The patient is alert he seated in his chair he shakes his legs throughout the session. He has his left upper extremity bandaged at the antecubital fossa. Eye contact is staring in nature. He maintains a flat affect. He reports his mood was irritable but doing better today. He demonstrates no verbal or physical aggressiveness. He reports feeling safe in the hospital. He is reporting no thoughts of harming others. He states he has no suicidal thoughts but needs to figure out how he is going to live once he leaves here. Speech is fluent, he provides no spontaneous conversation, he does provides brief answers to questions asked. Insight and judgment limited. Plan: The patient will continue on his current medication however we will move the Prolixin dose to bedtime. We will consider titrating the Prolixin further if necessary. He is encouraged to continue participating in the milieu. We will monitor him for safety. He is not yet sufficiently stabilized for discharge. He may be appropriate for discharge towards the end of the week. Vital signs reviewed.
[2018-06-20] MEDS: ACETAMINOPHEN TAB 325 MG TAB PO PRN (15:27)
[2018-06-20] MEDS: OLANZapine 10 MG TAB PO SCH (20:12)
[2018-06-20] MEDS: LORazepam 1 MG TAB PO PRN (20:14)
[2018-06-21] MEDS: NICOTINE 14MG/24HR PATCH TRANSDERM SCH (08:46)
[2018-06-21] MEDS: ESCITALOPRAM 5 MG TAB PO SCH (08:46)
--- NOTE | 2018-06-21 10:53 | P.PN ---
Progress Note - Text Interval history: The patient is found in the hallway he follows me to an interview room. He reports overall he feels better. He finds it easier to elicit hopeful thoughts. He states he has decided he wants to live. He demonstrates some future oriented thinking in terms of engaging in hobbies. He states that he will start fruit carving and doing airbrush painting. He states he has a few friends that are a good influence that he can socialize with. He reports his auditory hallucinations are quiet and mumbling. He is perceiving no derogatory statements. No command auditory hallucinations. Mental status exam: The patient is alert affect is much brighter he appropriately engages in conversation. After covering pertinent questions he engages in a conversation regarding college football. He states his mood is better. He demonstrates appropriate eye contact. Speech is fluent and spontaneous nonpressured. He is reporting no suicidal or homicidal ideation intent or plan. He is reporting no visual hallucinations he endorses no specific delusions. Insight and judgment appear to be improving. He demonstrates no verbal or physical aggressiveness he demonstrates no abnormal involuntary movements. Plan: The patient will continue on his current medication however I will titrate the Lexapro to 10 mg daily. We will monitor him for safety. We will consider discharging him in the next 1-2 days if he is clinically stable.
[2018-06-21] MEDS: LORazepam 1 MG TAB PO PRN (12:26)
[2018-06-21] MEDS: OLANZapine 10 MG TAB PO SCH (20:27)
[2018-06-22 06:01] VITALS: BP 110/66; PULSE 50; RESP 18; TEMP 97.9
--- NOTE | 2018-06-22 07:44 | P.DS ---
Providers Date of admission: 06/16/18 16:14 Expected date of discharge: 06/22/18 Attending physician: Daniel Fitch Consults: 06/16/18 17:51 Consult Physician Routine Consulting Provider: Arnaud Franco Consult Reason/Comments: Antecubital laceration Do you want consulting provider notified?: Yes 06/16/18 18:01 Consult Physician Routine Consulting Provider: [facility] Consult Reason/Comments: follow up H & P Do you want consulting provider notified?: Already Contacted Primary care physician: Stated None - Discharge Diagnosis(es) (1) Schizoaffective disorder Current Visit: Yes Status: Acute Priority: High (2) Methamphetamine use disorder, mild Current Visit: Yes Status: Acute Priority: Medium Hospital Course: Brief summary of admission note: This patient is a 33-year-old single male who was admitted to the mental health unit after attempting suicide via cutting his arm. The patient had cut his left antecubital fossa approximately 3 days prior to his admission here. He states that he bled passed out when he awoke he called for an ambulance. He describes having no desire to live and reported being depressed for the previous 2 months. He reported a long history of experiencing auditory hallucinations that were derogatory in nature and he reported feeling overwhelmed with those symptoms of psychosis. His presentation also occurred in the context of a recent relapse with methamphetamine. For full details please refer to the psychiatric evaluation dated 06/17/2018. Summary of hospital course: The patient was admitted to the mental health unit voluntarily. He was seen by internal medicine and then secondarily by surgery to evaluate his wound. No surgical intervention was recommended and nursing provided wound care. There were no reports of signs of infection. We evaluated the patient's symptoms and treatment options. He wish to remain on the Lexapro and Zyprexa as they found them helpful and we decided to augment with Prolixin. After the initiation of the Prolixin he did find his symptoms improved. He reported no side effects from the Prolixin other than sedation when we gave in the morning. The dosing of that medication was switched to bedtime and he tolerated it better. He demonstrated no agitated behavior while on the mental health unit. His participation in the milieu improved during the course of the hospitalization. His affect and participation in our sessions improved as his hospital stay progressed as well. We discussed his use of substances in detail. He refused the option of attending inpatient chemical dependency treatment. He does not feel he requires a medication for his chemical dependency issues. Mental status exam: The patient is alert he is dressed in his own clothing hygiene grooming are adequate. He continues to have a bandage over his left antecubital fossa. Eye contact is appropriate speech is fluent spontaneous nonpressured. He denies having any suicidal ideation intent or plan. He is reporting no homicidal ideation intent or plan. He states he does not feel hopeless. He notes improvement of his mood and he describes some future oriented thinking. He endorses a significant improvement in his auditory hallucinations. He states they will intermittently return but are mumbling in nature. He is describing no command auditory hallucinations. He is endorsing no feelings of paranoia or persecution. There is no observed evidence of psychosis during our interaction. Thought process is linear he demonstrates no tangential thinking loose associations or flight of ideas. He does not appear hypomanic or manic. Insight and judgment improved. He is oriented to person place and date. He demonstrates no abnormal involuntary movements. Impressions 1. Schizoaffective disorder, opiate abuse disorder, methamphetamine use disorder 2. Laceration wound to left antecubital fossa Plan: The patient will be discharged mental health unit today to return to his apartment. Services will be arranged with [facility] for outpatient care. The patient will continue on Zyprexa 20 mg at bedtime, Prolixin 5 mg at bedtime, Lexapro 10 mg daily. Ideally we would be able to stabilize him with use of one antipsychotic. However his symptoms have been somewhat refractory to the Zyprexa 20 mg alone. The Prolixin may be continued to be used as an augmentation strategy or his outpatient clinician may decide to cross taper him off of Zyprexa and proceed to titrate Prolixin further. He does not wish to participate in any inpatient chemical dependency treatment. We discussed the importance of him abstaining from any use of alcohol and marijuana and other illicit drugs. We discussed that the substances will elevate his safety risk. At this time there is no imminent safety risk he is appropriate for transition to outpatient care. He is instructed to return to the hospital any acute safety concerns. Patient Condition at Discharge: Stable Plan - Discharge Summary Discharge Rx Participant: No New Discharge Prescriptions: New Escitalopram [Lexapro] 10 mg PO DAILY #10 tab fluPHENAZine [Prolixin] 5 mg PO HS #30 tab Nicotine 14Mg/24Hr Patch [Habitrol] 1 patch TRANSDERM DAILY #12 patch OLANZapine 20 mg PO HS #30 tablet Discontinued OLANZapine [ZyPREXA] 20 mg PO HS Escitalopram [Lexapro] 20 mg PO DAILY Discharge Medication List Escitalopram [Lexapro] 10 mg PO DAILY #10 tab 06/22/18 [Rx] Nicotine 14Mg/24Hr Patch [Habitrol] 1 patch TRANSDERM DAILY #12 patch 06/22/18 [ Rx] OLANZapine 20 mg PO HS #30 tablet 06/22/18 [Rx] fluPHENAZine [Prolixin] 5 mg PO HS #30 tab 06/22/18 [Rx] Follow up Appointment(s)/Referral(s): None,Stated [Primary Care Provider] - 1-2 days
[2018-06-22] MEDS: NICOTINE 14MG/24HR PATCH TRANSDERM SCH (08:18)
[2018-06-22] MEDS ORDERED: ESCITALOPRAM 10 MG TAB PO SCH (09:00)
== END 2018-06-22 11:34 | disposition home or self-care (01) | DRG 885 ==
LOC: EC 13:32 → 3MHU 16:14
PROVIDERS: ADMIT Psychiatry & Neurology Psychiatry; ATTEND Psychiatry & Neurology Psychiatry
DX: F25.9 Schizoaffective disorder, unspecified (principal); R45.851 Suicidal ideations; F11.10 Opioid abuse, uncomplicated; F17.200 Nicotine dependence, unspecified, uncomplicated; S41.112A Laceration without foreign body of left upper arm, initial encounter; W26.0XXA Contact with knife, initial encounter; Z65.3 Problems related to other legal circumstances; Z79.899 Other long term (current) drug therapy; Z88.8 Allergy status to other drugs, medicaments and biological substances; F15.99 Other stimulant use, unspecified with unspecified stimulant-induced disorder; Z91.5 Personal history of self-harm
CPT/HCPCS: 36415; 80048; 80053; 80061; 80306; 81003; 82075; 82550; 82553; 83036; 83735; 84443; 85025; 90714; 90732; 96360; 99285

== ENCOUNTER 2018-08-02 15:00 | Inpatient (IN) | payer MEDICARE, OTHER ==
[2018-08-02] MEDS ORDERED: LORazepam 2 MG/ML INJ IV STA (15:17)
--- NOTE | 2018-08-02 15:22 | ED ---
General Adult HPI - General Chief complaint: Psychiatric Symptoms Stated complaint: mental health Source: patient Mode of arrival: ambulatory Limitations: no limitations - History of Present Illness Initial comments: Dictation was produced using [employer] dictation software. please excuse any grammatical, word or spelling errors. Chief Complaint: 33-year-old male past medical history of psychiatric disease and alcohol abuse presents with memory issues and hallucinations. History of Present Illness: Patient is a 33-year-old male who drinks several shots of daily presents with worsening hallucinations and memory problems. Patient has past medical history of schizophrenia and schizoaffective disorder. He was put on a regimen by a psychiatrist. He has been on this regimen for several months. States that today his cognition has been become worse. He is here now these voices. Denies any suicidal or homicidal ideation. He denies any other complaints. The ROS documented in this emergency department record has been reviewed and confirmed by me. Those systems with pertinent positive or negative responses have been documented in the HPI. All other systems are other negative and/or noncontributory. - Related Data Previous Rx's Medication Instructions Recorded Escitalopram [Lexapro] 10 mg PO DAILY #10 tab 06/22/18 OLANZapine 20 mg PO HS #30 tablet 06/22/18 Allergies Allergy/AdvReac Type Severity Reaction Status Date / Time haloperidol [From Haldol] Allergy Unknown Verified 08/02/18 15:41 haloperidol lactate Allergy Unknown Verified 08/02/18 15:41 [From Haldol] Review of Systems ROS Statement: Those systems with pertinent positive or pertinent negative responses have been documented in the HPI. ROS Other: All systems not noted in ROS Statement are negative. Past Medical History Past Medical History: No Reported History History of Any Multi-Drug Resistant Organisms: None Reported Past Surgical History: No Surgical Hx Reported Past Anesthesia/Blood Transfusion Reactions: No Reported Reaction Past Psychological History: Bipolar, Depression, Schizoaffective Disorder, Schizophrenia Smoking Status: Current every day smoker Past Alcohol Use History: Occasional Past Drug Use History: None Reported - Past Family History Father Family Medical History: No Reported History Mother Family Medical History: No Reported History General Exam - General Exam Comments Initial Comments: PHYSICAL EXAM: General Impression: Alert and oriented x3, not in acute distress HEENT: Normocephalic atraumatic, extra-ocular movements intact, pupils equal and reactive to light bilaterally, mucous membranes moist. Cardiovascular: Heart regular rate and rhythm, S1&S2 audible, no murmurs, rubs or gallops Chest: Lungs clear to auscultation bilaterally, no rhonchi, no wheeze, no rales Abdomen: Bowel sounds present, abdomen soft, non-tender, non-distended, no organomegaly Musculoskeletal: Pulses present and equal in all extremities, no peripheral edema Motor: Power 5/5 bilaterally, no focal deficits noted Neurological: CN II-XII grossly intact, no focal motor or sensory deficits noted Skin: Intact with no visualized rashes Psych: Agitated Limitations: no limitations Course Vital Signs 08/02/18 08/02/18 15:03 15:38 Temperature 98.1 F Pulse Rate 100 Respiratory 20 20 Rate Blood Pressure 142/83 O2 Sat by Pulse 99 Oximetry Medical Decision Making - Medical Decision Making ED course: 33 Old male who has past medical history of EtOH abuse and psychiatric disease presents with neurologic complaints. Vital signs upon arrival shows heart rate of 100, worse vital signs within normal limits. She appears agitated. Sightly whether this is symptoms of psychosis or EtOH withdrawal. Patient is a daily alcohol drinker.Laboratory evaluation obtained. CBC unremarkable, metabolic panel is unremarkable. Rapid urine drugs is negative, serum alcohol is 70. Patient's symptoms are suspicious for EtOH withdrawal. Patient is given Ativan with improvement of symptoms. Sclerae clear whether these are secondary to psychosis or withdrawal. We will have patient admitted to internal medicine for further management. - Lab Data Result diagrams: 08/02/18 15:25 08/02/18 15:25 Lab Results 08/02/18 08/02/18 08/02/18 Range/Units 15:25 15:25 15:25 WBC 7.2 (3.8-10.6) k/uL RBC 5.02 (4.30-5.90) m/uL Hgb 15.5 (13.0-17.5) gm/dL Hct 47.5 (39.0-53.0) % MCV 94.5 (80.0-100.0) fL MCH 30.8 (25.0-35.0) pg MCHC 32.6 (31.0-37.0) g/dL RDW 13.2 (11.5-15.5) % Plt Count 250 (150-450) k/uL Neutrophils % 66 % Lymphocytes % 24 % Monocytes % 6 % Eosinophils % 1 % Basophils % 0 % Neutrophils # 4.7 (1.3-7.7) k/uL Lymphocytes # 1.7 (1.0-4.8) k/uL Monocytes # 0.5 (0-1.0) k/uL Eosinophils # 0.0 (0-0.7) k/uL Basophils # 0.0 (0-0.2) k/uL Sodium 142 (137-145) mmol/L Potassium 3.5 (3.5-5.1) mmol/L Chloride 107 (98-107) mmol/L Carbon Dioxide 28 (22-30) mmol/L Anion Gap 7 mmol/L BUN 9 (9-20) mg/dL Creatinine 0.66 (0.66-1.25) mg/dL Est GFR (CKD-EPI)AfAm >90 (>60 ml/min/1.73 sqM) Est GFR (CKD-EPI)NonAf >90 (>60 ml/min/1.73 sqM) Glucose 91 (74-99) mg/dL Calcium 9.7 (8.4-10.2) mg/dL Urine Opiates Screen Not Detected (NotDetected) Ur Oxycodone Screen Not Detected (NotDetected) Urine Methadone Screen Not Detected (NotDetected) Ur Propoxyphene Screen Not Detected (NotDetected) Ur Barbiturates Screen Not Detected (NotDetected) U Tricyclic Antidepress Not Detected (NotDetected) Ur Phencyclidine Scrn Not Detected (NotDetected) Ur Amphetamines Screen Not Detected (NotDetected) U Methamphetamines Scrn Not Detected (NotDetected) U Benzodiazepines Scrn Not Detected (NotDetected) Urine Cocaine Screen Not Detected (NotDetected) U Marijuana (THC) Screen Not Detected (NotDetected) Serum Alcohol 70 mg/dL Disposition Clinical Impression: Alcohol abuse, Withdrawal symptoms, alcohol Disposition: ADMITTED IP TO THIS HOSP Condition: Fair Referrals: None,Stated [Primary Care Provider] - 1-2 days Decision Time: 16:41
[2018-08-02 15:37] LABS: Basophils % (A) 0 %; Eosinophils % (A) 1 %; HCT 47.5 % (39.0-53.0); HGB 15.5 gm/dL (13.0-17.5); Lymphocytes # (A) 1.7 k/uL (1.0-4.8); Lymphocytes % (A) 24 %; MCH 30.8 pg (25.0-35.0); MCHC 32.6 g/dL (31.0-37.0); MCV 94.5 fL (80.0-100.0); Mean Platelet Volume 8.1; Monocytes # (A) 0.5 k/uL (0-1.0); Monocytes % (A) 6 %; Neutrophils # (A) 4.7 k/uL (1.3-7.7); Neutrophils % (A) 66 %; Platelet Count 250 k/uL (150-450); RBC 5.02 m/uL (4.30-5.90); RDW 13.2 % (11.5-15.5); WBC 7.2 k/uL (3.8-10.6)
[2018-08-02 15:46] LABS: Amphetamine Screen,Urine Not Detected (NotDetected); Barbiturate Screen,Urine Not Detected (NotDetected); Benzodiazepines Screen,Urine Not Detected (NotDetected); Cocaine Screen,Urine Not Detected (NotDetected); Methadone Screen, Urine Not Detected (NotDetected); Opiate Screen,Urine Not Detected (NotDetected); Oxycodone Screen, Urine Not Detected (NotDetected); Phencyclidine Screen,Urine Not Detected (NotDetected); Tricyclic Antidepressant,Urine Not Detected (NotDetected); Urn Cannabinoid Scrn Not Detected (NotDetected)
[2018-08-02 15:54] LABS: Alcohol 70 mg/dL; Anion Gap 7 mmol/L; Blood Urea Nitrogen 9 mg/dL (9-20); Calcium 9.7 mg/dL (8.4-10.2); Carbon Dioxide 28 mmol/L (22-30); Chloride 107 mmol/L (98-107); Glucose 91 mg/dL (74-99); Potassium 3.5 mmol/L (3.5-5.1); Sodium 142 mmol/L (137-145)
[2018-08-02] MEDS ORDERED: LORazepam 2 MG/ML INJ IV PRN ×2 (16:07)
[2018-08-02] MEDS ORDERED: THIAMINE 100 MG/ML 2 ML VIAL IM STA (16:07)
[2018-08-02] MEDS ORDERED: HALOPERIDOL LACTATE 5 MG/ML 1 ML VIAL IVP PRN (16:08)
[2018-08-02] MEDS ORDERED: TEMAZEPAM 15 MG CAP PO PRN (16:10)
[2018-08-02] MEDS ORDERED: ACETAMINOPHEN TAB 500 MG TAB PO PRN (16:10)
[2018-08-02] MEDS ORDERED: NALOXONE 0.4 MG/ML 1 ML VIAL IV PRN (16:35)
[2018-08-02 16:48] LABS: Appearance,Urine Clear (Clear); Bilirubin,Urine Negative (Negative); Blood,Urine Negative (Negative); Color,Urine Yellow; Glucose,Urine (UA) Negative (Negative); Ketones,Urine Negative (Negative); Leukocyte Esterase,Urine Trace (Negative); Mucus,Urine Occasional /hpf; Nitrite,Urine Negative (Negative); PH, Urine 5.5 (5.0-8.0); Protein,Urine Negative (Negative); RBC,Urine 1 /hpf (0-5); Specific Gravity,Urine 1.009 (1.001-1.035); Urobilinogen,Urine <2.0 mg/dL (<2.0); WBC,Urine 3 /hpf (0-5)
--- NOTE | 2018-08-02 16:53 | XR ---
EXAMINATION TYPE: XR chest 1V portable DATE OF EXAM: 08/02/2018 COMPARISON: 08/05/2014 HISTORY: Pneumonia. Chest pain TECHNIQUE: Single frontal view of the chest is obtained. FINDINGS: Heart and mediastinum are normal. Lungs are clear. Diaphragm is normal. Bony thorax is int act. IMPRESSION: Normal chest. No change.
[2018-08-02] MEDS: SODIUM CHLORIDE 0.9% 1,000 ML with POTASSIUM CHLORIDE 20 MEQ, MVI, ADULT NO.4 WITH VIT ... IV SCH ×10 (16:54→22:39)
[2018-08-02 17:56] VITALS: RESP 16
--- NOTE | 2018-08-02 18:02 | HP ---
HISTORY AND PHYSICAL DATE OF SERVICE: 08/02/2018 CHIEF COMPLAINT: Change in mental status. HISTORY OF PRESENT ILLNESS: This 33-year-old gentleman with a past medical history of bipolar depression, schizoaffective disorder, schizophrenia, not being followed by a primary physician in the outpatient setting, apparently was drinking also. The patient also has polysubstance abuse. Currently the patient is complaining of weakness, tired, jittery, tremulous, hallucinations and multiple medical issues. Patient was admitted for further evaluation and treatment. There is no history of any fever, rigor or chills. No history of headache, loss of consciousness, seizures. PAST MEDICAL HISTORY: 1. History of bipolar depression. 2. Schizoaffective disorder. 3. Schizophrenia. 4. Nicotine dependence. HOME MEDICATIONS: 1. Zyprexa 20 mg at bedtime. 2. Lexapro 10 mg daily. ALLERGIES: HALOPERIDOL. FAMILY HISTORY: No history of heart disease or strokes in the family. SOCIAL HISTORY: Polysubstance abuse, as mentioned, including alcohol and smoking. REVIEW OF SYSTEMS: ENT: No diminished hearing. No diminished vision. CARDIOVASCULAR SYSTEM: No angina, palpitations. RESPIRATORY SYSTEM: As mentioned earlier. GI: No nausea, vomiting. : No dysuria or retention. NEUROLOGICAL: As mentioned earlier. ALLERGY/IMMUNOLOGY: No asthma, hayfever. MUSCULOSKELETAL: As mentioned earlier. HEMATOLOGY/ONCOLOGY: No history of anemia. ENDOCRINE: No history of diabetes, hypothyroidism. CONSTITUTIONAL: As mentioned earlier. DERMATOLOGY: Negative. RHEUMATOLOGY: Negative. PSYCHIATRY: As mentioned earlier. PHYSICAL EXAMINATION: Patient alert and oriented x3. Pulse 100, blood pressure 142/83, respiration 20, temperature 98.1, pulse ox 99% on room air. HEENT: Conjunctivae normal. Oral mucosa moist. NECK: No jugular venous distention. No carotid bruit. No lymph node enlargement. CARDIOVASCULAR SYSTEM: S1, S2 muffled. RESPIRATORY SYSTEM: Breath sounds diminished at the bases. A few rhonchi. No crackles. ABDOMEN: Soft, non-tender. No mass palpable. LEGS: No edema. No swelling. NERVOUS SYSTEM: Higher functions as mentioned earlier. Moves all 4 limbs. No focal motor or sensory deficit. Diffuse tremors and unsteadiness present. LYMPHATICS: No lymph node palpable in neck, axillae or groin. LABS: CBC and BMP within normal limits. Alcohol 70. ASSESSMENT: 1. Possible acute alcohol intoxication; rule out acute delirium tremens. 2. Possible psychosis. 3. Bipolar depression and schizoaffective disorder. 4. History of nicotine dependence. 5. History of polysubstance abuse. RECOMMENDATIONS AND DISCUSSION: In this 33-year-old gentleman who presented with multiple complex medical issues, we will we will monitor the patient closely, continue the current medications, continue with symptomatic treatment. I recommend CIWA protocol and alcohol withdrawal precautions. I would also recommend psychiatric consultation. Closely monitor. Prognosis guarded. Social work consultation for arranging substance abuse counseling. I will continue to monitor. Basic labs are normal at this time. We will repeat and continue to monitor. See orders for further details. I also recommend that the patient follow up with a primary physician in the outpatient setting. MMDENNYL / IJN: [id number] /
[2018-08-02] MEDS: LORazepam 2 MG/ML INJ IV PRN (21:15)
[2018-08-03] MEDS: LORazepam 2 MG/ML INJ IV PRN (03:46)
[2018-08-03 05:22] VITALS: BP 117/56; PULSE 57; TEMP 97.6
[2018-08-03 07:17] LABS: Anion Gap 4 mmol/L; Blood Urea Nitrogen 14 mg/dL (9-20); Calcium 9.1 mg/dL (8.4-10.2); Carbon Dioxide 26 mmol/L (22-30); Chloride 110 mmol/L (98-107); Glucose 88 mg/dL (74-99); Potassium 4.1 mmol/L (3.5-5.1); Sodium 140 mmol/L (137-145)
[2018-08-03 07:22] LABS: Basophils % (A) 1 %; Eosinophils # (A) 0.1 k/uL (0-0.7); Eosinophils % (A) 2 %; HCT 42.3 % (39.0-53.0); Lymphocytes # (A) 1.5 k/uL (1.0-4.8); Lymphocytes % (A) 26 %; MCH 31.4 pg (25.0-35.0); Mean Platelet Volume 7.3; Monocytes # (A) 0.6 k/uL (0-1.0); Monocytes % (A) 9 %; Neutrophils # (A) 3.6 k/uL (1.3-7.7); Neutrophils % (A) 60 %; Platelet Count 191 k/uL (150-450); RBC 4.45 m/uL (4.30-5.90); RDW 13.2 % (11.5-15.5)
[2018-08-03] MEDS ORDERED: PANTOPRAZOLE 40 MG TABLET PO SCH (07:30)
--- NOTE | 2018-08-03 09:25 | P.HP ---
Psychiatric H&P - . H&P Date: 08/03/18 History & Physical: Allergies Allergy/AdvReac Type Severity Reaction Status Date / Time haloperidol [From Haldol] Allergy Unknown Verified 08/02/18 15:41 haloperidol lactate Allergy Unknown Verified 08/02/18 15:41 [From Haldol] Vital Signs Temp 97.6 F 08/03/18 04:57 Pulse 57 L 08/03/18 04:57 Resp 16 08/03/18 04:57 BP 117/56 08/03/18 04:57 Pulse Ox 94 L 08/02/18 20:33 Intake & Output 08/02/18 08/03/18 08/03/18 18:59 06:59 18:59 Intake Total 900 Balance 900 Weight 68.039 kg 68.039 kg Intake: Intake, IV Titration 900 Amount Sodium Chloride 0.9% 1, 900 000 ml @ 75 mls/hr IV . [id number] CARMITA with Potassium Chloride 20 meq with Mvi, Adult No.4 with Vit K 10 ml with Thiamine 100 mg with Folic Acid 1 mg Rx#: [id number] Other: Voiding Method Toilet Toilet Laboratory Last Values WBC 6.0 k/uL (3.8-10.6) 08/03/18 06:35 RBC 4.45 m/uL (4.30-5.90) 08/03/18 06:35 Hgb 14.0 gm/dL (13.0-17.5) 08/03/18 06:35 Hct 42.3 % (39.0-53.0) 08/03/18 06:35 MCV 95.0 fL (80.0-100.0) 08/03/18 06:35 MCH 31.4 pg (25.0-35.0) 08/03/18 06:35 MCHC 33.0 g/dL (31.0-37.0) 08/03/18 06:35 RDW 13.2 % (11.5-15.5) 08/03/18 06:35 Plt Count 191 k/uL (150-450) 08/03/18 06:35 Neutrophils % 60 % 08/03/18 06:35 Lymphocytes % 26 % 08/03/18 06:35 Monocytes % 9 % 08/03/18 06:35 Eosinophils % 2 % 08/03/18 06:35 Basophils % 1 % 08/03/18 06:35 Neutrophils # 3.6 k/uL (1.3-7.7) 08/03/18 06:35 Lymphocytes # 1.5 k/uL (1.0-4.8) 08/03/18 06:35 Monocytes # 0.6 k/uL (0-1.0) 08/03/18 06:35 Eosinophils # 0.1 k/uL (0-0.7) 08/03/18 06:35 Basophils # 0.0 k/uL (0-0.2) 08/03/18 06:35 Sodium 140 mmol/L (137-145) 08/03/18 06:35 Potassium 4.1 mmol/L (3.5-5.1) 08/03/18 06:35 Chloride 110 mmol/L (98-107) H 08/03/18 06:35 Carbon Dioxide 26 mmol/L (22-30) 08/03/18 06:35 Anion Gap 4 mmol/L 08/03/18 06:35 BUN 14 mg/dL (9-20) 08/03/18 06:35 Creatinine 0.79 mg/dL (0.66-1.25) 08/03/18 06:35 Est GFR (CKD-EPI)AfAm >90 (>60 ml/min/1.73 sqM) 08/03/18 06:35 Est GFR (CKD-EPI)NonAf >90 (>60 ml/min/1.73 sqM) 08/03/18 06:35 Glucose 88 mg/dL (74-99) 08/03/18 06:35 Calcium 9.1 mg/dL (8.4-10.2) 08/03/18 06:35 Urine Color Yellow 08/02/18 15:25 Urine Appearance Clear (Clear) 08/02/18 15:25 Urine pH 5.5 (5.0-8.0) 08/02/18 15:25 Ur Specific [place] 1.009 (1.001-1.035) 08/02/18 15:25 Urine Protein Negative (Negative) 08/02/18 15:25 Urine Glucose (UA) Negative (Negative) 08/02/18 15:25 Urine Ketones Negative (Negative) 08/02/18 15:25 Urine Blood Negative (Negative) 08/02/18 15:25 Urine Nitrite Negative (Negative) 08/02/18 15:25 Urine Bilirubin Negative (Negative) 08/02/18 15:25 Urine Urobilinogen <2.0 mg/dL (<2.0) 08/02/18 15:25 Ur Leukocyte Esterase Trace (Negative) H 08/02/18 15:25 Urine RBC 1 /hpf (0-5) 08/02/18 15:25 Urine WBC 3 /hpf (0-5) 08/02/18 15:25 Urine Mucus Occasional /hpf (None) H 08/02/18 15:25 Urine Opiates Screen Not Detected (NotDetected) 08/02/18 15:25 Ur Oxycodone Screen Not Detected (NotDetected) 08/02/18 15:25 Urine Methadone Screen Not Detected (NotDetected) 08/02/18 15:25 Ur Propoxyphene Screen Not Detected (NotDetected) 08/02/18 15:25 Ur Barbiturates Screen Not Detected (NotDetected) 08/02/18 15:25 U Tricyclic Antidepress Not Detected (NotDetected) 08/02/18 15:25 Ur Phencyclidine Scrn Not Detected (NotDetected) 08/02/18 15:25 Ur Amphetamines Screen Not Detected (NotDetected) 08/02/18 15:25 U Methamphetamines Scrn Not Detected (NotDetected) 08/02/18 15:25 U Benzodiazepines Scrn Not Detected (NotDetected) 08/02/18 15:25 Urine Cocaine Screen Not Detected (NotDetected) 08/02/18 15:25 U Marijuana (THC) Screen Not Detected (NotDetected) 08/02/18 15:25 Serum Alcohol 70 mg/dL 08/02/18 15:25 08/03/18 08:34 Chief Complaint: 33-year-old male past medical history of psychiatric disease and alcohol abuse presents with memory issues and hallucinations. He is treated by a local [facility] mental health by Dr. Ozuna He has complained about his medications and she is made no changes. He is calm and cooperative and relates a long history of mental illness for the last 11-12 years. He lives alone and his mother and father are supportive. 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 He now feels that there is some somatic results to the psychosis and came to the hospital to get help. History of Present Illness: Patient is a 33-year-old male who drinks several shots of daily presents with worsening hallucinations and memory problems. Patient has past medical history of schizophrenia and schizoaffective disorder. He was put on a regimen by a psychiatrist. He has been on this regimen for several months. States that today his cognition has been become worse. He is here now these voices. Denies any suicidal or homicidal ideation. He denies any other complaints. Past Medical History Past Medical History: No Reported History History of Any Multi-Drug Resistant Organisms: None Reported Past Surgical History: No Surgical Hx Reported Past Anesthesia/Blood Transfusion Reactions: No Reported Reaction Past Psychological History: Schizoaffective Disorder, bipolar type Smoking Status: Current every day smoker Past Alcohol Use History: Occasional Past Drug Use History: None Reported - Past Family History Father Family Medical History: No Reported History Mother Family Medical History: No Reported History LEGAL HISTORY: [He has no legal history]. SOCIAL HISTORY: [He does not have a girlfriend lives alone and sees his parents on occasion]. MENTAL STATUS EXAM: []. The patient presents alert, anxious, and cooperative. There calmly seated without any agitated behavior. [He ] reports that [his mood is depressed] mood i and he is fearful there are something wrong with his body. Affect is congruent and flat constricted restricted and flat facies. [He] deny having any suicidal (although he is fearful having suicidal thoughts and may act on ( or homicidal ideation intent or plan. []He has auditory hallucinations for the past 11-12 years and it never goes away but has no visual hallucinations.. There is no evidence of any delusional thought content. [Is] thought process is not linear and goal-directed. [Is] speech is fluent and nonpressured. [His ] memory and concentration is grossly intact for the purposes of this session. Mental Status: [] Appearance/Attitude: [He has a cooperative attitude during interview but it's obviously responding to internal stimuli] Behavior: [He is calm in nature and able answer questions and has ability to be oriented person place and time, Global information is intact but is distracted at times while being interviewed.] Speech/Language: [His speech is hesitant at times and easily you can see that he is responding to internal stimuli] Thought Process: [He is responding to internal stimuli] Thought Content: [He appears to have distractions due to the auditory hallucinations he was nonspecific in detail to further delineate what those hallucinations are but wants help and will sign in formal voluntary] Suicidal/Homicidal Ideation: [Questionable whether he has suicidal intent states that he has no command hallucinations but I would rather him be a formal voluntary and checked into the unit and adjust his medications.] Sensorium/Cognition: [Globally intact] Mood/Affect: [Depressed and anxious fearful withdrawn can't sleep FOCUS can't concentrate] Insight/Judgment: [Became hospital to get help his judgment seems intact however he has recently decompensated not able to work] CLINICAL IMPRESSIONS: This is a 33-year-old male who lives by himself who is on a variety of medications and feels that they are not helping has asked his chin and mental health provider to change and according to the patient she did not want a change in his medications. His clinical diagnosis is schizoaffective bipolar type and will be further evaluated on the unit. He has a formal voluntary. RECOMMENDATIONS: Recommendations are transfer from the fifth floor to the third floor psychiatric unit on a formal voluntary and should be transferred today and be treated. He will be admitted to the psychiatric unit for work and milieu therapeutic environment, psychiatric medication evaluation, medical evaluation, social work evaluation, nursing evaluation, recreational therapy evaluation and integrated into group therapy and will be changed by mouth especially group which we'll meet on daily basis to evaluate patient's on the treatment course. Thank you for this consult since this is an ideal psychiatric patient 08/03/18 08:36 08/03/18 09:13
--- NOTE | 2018-08-03 18:51 | DS ---
DISCHARGE SUMMARY DATE OF SERVICE: 08/03/2018. FINAL DIAGNOSES: 1. Possible acute alcohol intake.intoxication, early delirium tremens, improved. 2. Possible psychosis. 3. Bipolar, depression, schizoaffective disorder. 4. Nicotine dependence. 5. Polysubstance abuse. HISTORY OF PRESENT ILLNESS: This 33-year-old gentleman with a past medical history of multiple medical problems admitted with possible acute alcohol intoxication as well as withdrawals. The patient also had history of polysubstance abuse, also treated symptomatically. Patient improved significantly. Psychiatry saw the patient and recommended follow up with inpatient psych. On exam, vital signs are stable. Cardiovascular: S1, S2. Abdomen soft. Nervous system: No focal deficits. The patient is being transferred to inpatient psych. I recommend the patient continue with CIWA protocol. Supplement vitamins. Otherwise, rest of the medications per Psychiatry. MMDENNYL / IJN: [id number] / MTDD
== END 2018-08-03 13:10 | DRG 885 ==
LOC: EC 15:00 → 5MS5E 16:35
PROVIDERS: ADMIT Hospitalist; ATTEND Hospitalist
DX: F25.0 Schizoaffective disorder, bipolar type (principal); F10.121 Alcohol abuse with intoxication delirium; F17.210 Nicotine dependence, cigarettes, uncomplicated; F29 Unspecified psychosis not due to a substance or known physiological condition; Z79.899 Other long term (current) drug therapy; Z88.8 Allergy status to other drugs, medicaments and biological substances
CPT/HCPCS: 36415; 71045; 80048; 80306; 80320; 81001; 82075; 85025; 93005; 96372; 96374; 99285

== ENCOUNTER 2018-08-03 13:19 | Inpatient (IN) | payer MEDICARE, MEDICAID ==
[2018-08-03] MEDS ORDERED: MAGNESIUM HYDROXIDE 2,400 MG/10 ML CUP PO PRN (13:56)
[2018-08-03] MEDS ORDERED: ACETAMINOPHEN TAB 325 MG TAB PO PRN (13:56)
[2018-08-03] MEDS ORDERED: MAG HYDROX/AL HYDROX/SIMETH 30 ML CUP PO PRN (13:56)
[2018-08-03] MEDS: NICOTINE 21MG/24HR PATCH TRANSDERM SCH (14:22)
[2018-08-03] MEDS: LORazepam 1 MG TAB PO PRN (17:23)
[2018-08-03] MEDS: OLANZapine 10 MG TAB PO SCH (20:17)
[2018-08-03] MEDS: lamoTRIgine 25 MG TAB PO SCH (20:17)
[2018-08-04] MEDS: PANTOPRAZOLE 40 MG TABLET PO SCH (08:20)
[2018-08-04] MEDS: NICOTINE 21MG/24HR PATCH TRANSDERM SCH (08:21)
[2018-08-04] MEDS: LORazepam 1 MG TAB PO PRN (09:25)
[2018-08-04] MEDS: OLANZapine ODT 5 MG TAB PO PRN (11:51)
[2018-08-04] MEDS: FOLIC ACID 1 MG TAB PO SCH (12:08)
[2018-08-04] MEDS: MULTIVITAMINS, THERA 1 EACH TAB PO SCH (12:08)
[2018-08-04] MEDS: THIAMINE 100 MG TAB PO SCH (12:08)
[2018-08-04] MEDS: LORazepam 2 MG/ML INJ IM PRN (15:00)
[2018-08-04] MEDS: ZIPRASIDONE 20 MG VIAL IM PRN (15:01)
--- NOTE | 2018-08-04 16:43 | CONS ---
CONSULTATION DATE OF SERVICE: 08/04/2018. REASON FOR CONSULTATION: Advice regarding DTs and other multiple medical issues requested by Psychiatry. HISTORY OF PRESENT ILLNESS: This 33-year-old gentleman with a past history of bipolar depression, polysubstance abuse admitted with alcohol intake and features of DTs to the medical floor. Patient treated with IV and p.o. Ativan. The patient presently transferred to psych floor. There is no history of fever. No headache, loss of consciousness, chest pain, palpitations, hematochezia or melena at this time. PAST MEDICAL HISTORY: History of polysubstance abuse, history of depression, history of alcohol and recent DTs. MEDICATIONS: Prior to admission include: 1. Vitamin B1. 2. Thiamine 100 mg. 3. Restoril 15 mg. 4. Protonix 40 mg. 5. Zyprexa 20 mg. 6. Multivitamins. 7. Folic acid 1 mg. 8. Lexapro 10 mg. ALLERGIES: HALDOL. FAMILY HISTORY: History of anxiety, Crohn disease. SOCIAL HISTORY: History of polysubstance abuse, alcohol, smoking. REVIEW OF SYSTEMS: ENT: No diminished hearing or vision. CARDIOVASCULAR: No angina. RESPIRATORY: No cough, hemoptysis. GI: No nausea. : No dysuria. NERVOUS SYSTEM: No numbness or weakness. ALLERGY/IMMUNOLOGY: No asthma or hayfever. MUSCULOSKELETAL: As mentioned earlier. HEMATOLOGY/ONCOLOGY: No history of diabetes or hypothyroidism. CONSTITUTIONAL: As mentioned earlier. DERMATOLOGY: Negative. RHEUMATOLOGY: Negative. PSYCHIATRY: As mentioned earlier. PHYSICAL EXAMINATION: Alert and oriented x3. Pulse is 62, blood pressure 100/56, respirations 16, temperature 97.6, pulse ox normal on room air. HEENT: Conjunctivae normal. Oral mucosa moist. NECK: No jugular venous distention. No carotid bruit. No lymph node enlargement. CARDIOVASCULAR: S1, S2 basis. No rhonchi, no crackles. ABDOMEN: Soft, nontender. LEGS: No edema, no swelling. NERVOUS SYSTEM: Higher functions as mentioned earlier. No cranial abnormality. No facial deviation. Moves all 4 limbs. No focal deficit. LYMPHATICS: No lymphadenopathy in the neck, axillae, groin. SKIN: No ulcer, rash, bleeding. JOINTS: No active deforming arthropathy. LABS: Not available. ASSESSMENT: 1. Status post alcohol intoxication withdrawal and early delirium tremens, improving. 2. Possible psychosis. 3. Bipolar, depression, schizoaffective disorder. 4. Nicotine dependence. 5. History of polysubstance abuse. RECOMMENDATIONS AND DISCUSSION: I recommend to continue current management, continue symptomatic treatment. As far as the DTs are concerned, the patient is improved significantly. I would recommend to continue the multivitamins. Smoking cessation. Substance abuse counseling and if possible outpatient rehab. Otherwise, continue the current medications. The patient will be asked to follow up with primary physician closely after discharge. Thank you for letting us participate in the care of this patient. MMODL / IJN: [id number] /
--- NOTE | 2018-08-04 16:52 | PN ---
PROGRESS NOTE Patient seen, interviewed. Found very anxious, agitated. Patient reported that he has been here for the last few days and he is getting very stressed out. He said he is hurting in his body. He reports that he has some memory lapses. He reports hearing voices, which are variable voices telling him to hurt himself and hurt people around. He reports his anxiety is getting worse. He said he did not sleep good last night. He has been compliant on his medication. He has been receiving Lamictal and Zyprexa 20 at the bedtime. Reports some improvement in the mood, but still feeling agitated. MENTAL EXAMINATION: Patient is alert, oriented x4. Has fair eye contact. Speech somewhat pressured. Mood irritable, angry with congruent affect. He denies any symptoms ideation. He has command hallucinations. He is somewhat paranoid and delusional. Insight and judgment is still impaired. ASSESSMENT AND PLAN: We would give him intramuscular Geodon 20 mg IM along with 2 mg of Ativan q.12 hourly as needed to help with agitation and aggression. Will continue to adjust medications accordingly. Encouraged to attend groups and meetings. Supportive therapy provided. MMDENNYL / JUANI: [id number] /
[2018-08-04] MEDS: lamoTRIgine 25 MG TAB PO SCH (20:48)
[2018-08-04] MEDS: OLANZapine 10 MG TAB PO SCH (20:48)
[2018-08-05] MEDS ORDERED: ZIPRASIDONE 20 MG VIAL IM ONE (00:01)
[2018-08-05] MEDS ORDERED: WATER FOR INJECTION, STERILE 10 ML IV ONE (00:01)
[2018-08-05] MEDS: LORazepam 2 MG/ML INJ IM PRN ×2 (00:05→21:55)
[2018-08-05] MEDS: ZIPRASIDONE 20 MG VIAL IM PRN ×2 (00:06→14:34)
[2018-08-05] MEDS: PANTOPRAZOLE 40 MG TABLET PO SCH (08:22)
[2018-08-05] MEDS: MULTIVITAMINS, THERA 1 EACH TAB PO SCH (08:22)
[2018-08-05] MEDS: NICOTINE 21MG/24HR PATCH TRANSDERM SCH (08:22)
[2018-08-05] MEDS: FOLIC ACID 1 MG TAB PO SCH (08:22)
[2018-08-05] MEDS: THIAMINE 100 MG TAB PO SCH (08:22)
--- NOTE | 2018-08-05 12:59 | PN ---
PROGRESS NOTE HISTORY: Patient seen and interviewed, found still a little bit irritable. Continues to respond to internal stimuli. He reports the voices are telling him to do bad things. He said Geodon which he received yesterday did help him calming down and making the voices go away. He wanted to get another shot. He is going to some groups. Most times he isolates and withdraws, stays by himself. MENTAL STATUS EXAMINATION: The patient is alert, oriented x4. He has poor eye contact. Speech today soft tone and normal volume. Mood irritable, angry, with congruent affect. Denies suicidal ideation. He continues to have command hallucinations. Still paranoid and delusional. Insight and judgment impaired. PLAN: We will continue to adjust medications accordingly. Encouraged him to attend groups and meetings. We will continue to use Geodon intramuscular in case of agitation or worsening psychosis. Support therapy provided. CLARI / JUANI: [id number] /
[2018-08-05] MEDS: OLANZapine 10 MG TAB PO SCH (20:33)
[2018-08-05] MEDS ORDERED: lamoTRIgine 25 MG TAB PO SCH (21:00)
[2018-08-06] MEDS: PANTOPRAZOLE 40 MG TABLET PO SCH (08:11)
[2018-08-06] MEDS: NICOTINE 21MG/24HR PATCH TRANSDERM SCH (08:11)
--- NOTE | 2018-08-06 10:18 | P.PN ---
Progress Note - Text Progress Note Date: 08/06/18 Chief complaint this 33-year-old male with a past medical history of psychiatric disease and alcohol abuse presents with memory issues and hallucinations. He is treated by a local [facility] mental health physician Dr. Ramirez is now left. He has had complaints about his medications and has had no changes. He is consistently upset that one hospitals or change here at the hospital and he still Deidra goes back many mental health he tends to have different medications. He is anxious with feet moving during the interview and cooperative and relates a long history of mental illness for the last 1112 years he lives alone and his mother and father are supportive. Mother and father are and he lived the first part of his life with his mother and on second part of his life with his father. There is no other mental illness in his family. 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 His unable to focus and concentrate and has decreased memory and inability to focus to work. Last 2 days since had difficulty with voices agitation and anxiety in her car additional medications. History of present illness's had came into the emergency room on night on 08/02/2018 was seen on the and transferred to the psychiatric unit. Past medical history includes no reported medical history next History of any multidrug resistant organisms none reported Past surgical history no surgical history reported Past anesthesia blood transfusion reactions nonblood reactions Past such psychological history schizoaffective disorder bipolar type Smoking status current every day smoker Past alcohol use disorder occasionally past Past drug use: He was here in June [facility] was treated for amphetamine withdrawal and acute psychosis Legal history he has no Social history he lives alone and does not have a girlfriend and he sees his parents on occasion The patient presents alert anxious cooperative. He is clearly responding to internal stimuli, and has lower. Extremity movement and arithmetic right foot tone. Affect is congruent flat constricted restricted and flat facies. He denies suicidal ideation at the present time. On Monday he did have suicidal thoughts. He's had auditory hallucinations with past level told to never goes away but has no visual hallucinations. There is no evidence any delusional thought content. His thought processes not linear and somewhat tangential and thoughts and speech. His speech is fluent and nonpressured. His memory has deficit or short-term memory but is appropriate for intermediate long-term memory. His appearance and attitude he has a cooperative attitude during attitude during the interview but is RESPONDING to internal stimuli. Behaviors , nature and able to answer questions has abilities to be oriented to person and place difficult on time. His covert information is intact but slow he is distracted at times while being interviewed this to internal's stimuli. Thought process is responding to internal stimuli thought content he appears to have distractions due to the auditory hallucinations is nonspecific and they have tended to further delineate what those hallucinations are wants help and will has signed in voluntarily. Mood and affect. He does appear depressed anxious fearful withdrawn can't sleep his focus can't concentrate. Insight and judgment to get help since he was feeling worse and was decompensating and therefore came to the hospital. Clinical interpretation and recommendations: She was on 20 mg of Zyprexa twice a day and still having auditory hallucinations and therefore we'll increase his Zyprexa to 40 mg twice a day and increases the Lamictal for his mood stabilization to 100 mg at bedtime. Diagnoses: Schizoaffective disorder, bipolar type unstable severe at the present time. He does complain of a fair amount of anxiety and thus we'll add Cogentin 1 mg twice a day. I encouraged him to interact in group setting, social milieu and dinero milieu therapy, will further evaluate his psychosis and his overall poor functioning on the unit and encourage him to take his medications and to eat meals sleep and if he needs help with the nurses and asked for Zydis not Ativan. Intellectual functioning is impaired at this time and will further evaluate for possible other medical reasons.
[2018-08-06] MEDS: THIAMINE 100 MG TAB PO SCH (11:15)
[2018-08-06] MEDS: MULTIVITAMINS, THERA 1 EACH TAB PO SCH (11:15)
[2018-08-06] MEDS: FOLIC ACID 1 MG TAB PO SCH (11:15)
[2018-08-06] MEDS: LORazepam 1 MG TAB PO PRN ×2 (11:15→22:36)
[2018-08-06] MEDS: ZIPRASIDONE 40 MG CAP PO SCH (17:11)
[2018-08-06] MEDS: BENZTROPINE MESYLATE 1 MG TAB PO SCH (20:21)
[2018-08-06] MEDS ORDERED: lamoTRIgine 100 MG TAB PO SCH (21:00)
[2018-08-06] MEDS: OLANZapine ODT 5 MG TAB PO PRN (22:37)
[2018-08-07] MEDS: NICOTINE 21MG/24HR PATCH TRANSDERM SCH (08:18)
[2018-08-07] MEDS: MULTIVITAMINS, THERA 1 EACH TAB PO SCH (08:19)
[2018-08-07] MEDS: FOLIC ACID 1 MG TAB PO SCH (08:19)
[2018-08-07] MEDS: PANTOPRAZOLE 40 MG TABLET PO SCH (08:19)
[2018-08-07] MEDS: BENZTROPINE MESYLATE 1 MG TAB PO SCH ×2 (08:19→20:11)
[2018-08-07] MEDS: THIAMINE 100 MG TAB PO SCH (08:19)
[2018-08-07] MEDS: ZIPRASIDONE 40 MG CAP PO SCH (08:20)
--- NOTE | 2018-08-07 12:33 | P.HP ---
Psychiatric H&P - . H&P Date: 08/03/19 History & Physical: Allergies Allergy/AdvReac Type Severity Reaction Status Date / Time haloperidol [From Haldol] Allergy Unknown Verified 08/03/18 14:57 haloperidol lactate Allergy Unknown Verified 08/03/18 14:57 [From Haldol] Vital Signs Temp 98.3 F 08/07/18 06:34 Pulse 53 L 08/07/18 06:34 Resp 18 08/07/18 06:34 BP 100/55 08/07/18 06:34 Pulse Ox 95 08/06/18 06:30 08/07/18 12:32 Chief complaint this 33-year-old male with a past medical history of psychiatric disease and alcohol abuse presents with memory issues and hallucinations. He is treated by a local replaced by [facility] mental health physician Dr. Ramirez is now left. He has had complaints about his medications and has had no changes. He is consistently upset that one hospitals or change here at the hospital and he still Deidra goes back many mental health he tends to have different medications. He is anxious with feet moving during the interview and cooperative and relates a long history of mental illness for the last 1112 years he lives alone and his mother and father are supportive. Mother and father are and he lived the first part of his life with his mother and on second part of his life with his father. There is no other mental illness in his family. 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 His unable to focus and concentrate and has decreased memory and inability to focus to work. Last 2 days since had difficulty with voices agitation and anxiety in her car additional medications. History of present illness's had came into the emergency room on night on 08/02/2018 was seen on the and transferred to the psychiatric unit. Past medical history includes no reported medical history next History of any multidrug resistant organisms none reported Past surgical history no surgical history reported Past anesthesia blood transfusion reactions nonblood reactions Past such psychological history schizoaffective disorder bipolar type Smoking status current every day smoker Past alcohol use disorder occasionally past Past [facility]: [facility] and [facility] psychosis Legal history he has no Social history he lives alone and does not have a girlfriend and he sees his parents on occasion The patient presents alert anxious cooperative. He is clearly responding to internal stimuli, and has lower. Extremity movement and arithmetic right foot tone. Affect is congruent flat constricted restricted and flat facies. He denies suicidal ideation at the present time. On Monday he did have suicidal thoughts. He's had auditory hallucinations with past level told to never goes away but has no visual hallucinations. There is no evidence any delusional thought content. His thought processes not linear and somewhat tangential and thoughts and speech. His speech is fluent and nonpressured. His memory has deficit or short-term memory but is appropriate for intermediate long-term memory. His appearance and attitude he has a cooperative attitude during attitude during the interview but is RESPONDING to internal stimuli. Behaviors , nature and able to answer questions has abilities to be oriented to person and place difficult on time. His covert information is intact but slow he is distracted at times while being interviewed this to internal's stimuli. Thought process is responding to internal stimuli thought content he appears to have distractions due to the auditory hallucinations is nonspecific and they have tended to further delineate what those hallucinations are wants help and will has signed in voluntarily. Mood and affect. He does appear depressed anxious fearful withdrawn can't sleep his focus can't concentrate. Insight and judgment to get help since he was feeling worse and was decompensating and therefore came to the hospital. Clinical interpretation and recommendations: She was on 20 mg of Zyprexa twice a day and still having auditory hallucinations and therefore we'll increase his Zyprexa to 40 mg twice a day and increases the Lamictal for his mood stabilization to 100 mg at bedtime. Diagnoses: Schizoaffective disorder, bipolar type unstable severe at the present time. He does complain of a fair amount of anxiety and thus we'll add Cogentin 1 mg twice a day. I encouraged him to interact in group setting, social milieu and dinero milieu therapy, will further evaluate his psychosis and his overall poor functioning on the unit and encourage him to take his medications and to eat meals sleep and if he needs help with the nurses and asked for Zydis not Ativan. Intellectual functioning is impaired at this time and will further evaluate for possible other medical reasons.
[2018-08-07] MEDS ORDERED: ZIPRASIDONE 20 MG VIAL IM PRN (12:53)
--- NOTE | 2018-08-07 13:13 | P.PN ---
Subjective Progress Note Date: 08/07/18 History of present illness's had came into the emergency room on night on 08/02/2018 was seen on the and transferred to the psychiatric unit. Past medical history includes no reported medical history next The patient presents alert anxious cooperative. He is clearly responding to internal stimuli, and has lower. Extremity movement and arithmetic right foot tone. Affect is congruent flat constricted restricted and flat facies. He denies suicidal ideation at the present time. On Monday he did have suicidal thoughts. He's had auditory hallucinations with past level told to never goes away but has no visual hallucinations. There is no evidence any delusional thought content. His thought processes not linear and somewhat tangential and thoughts and speech. His speech is fluent and nonpressured. His memory has deficit or short-term memory but is appropriate for intermediate long-term memory. His appearance and attitude he has a cooperative attitude during attitude during the interview but is RESPONDING to internal stimuli. Behaviors , nature and able to answer questions has abilities to be oriented to person and place difficult on time. His covert information is intact but slow he is distracted at times while being interviewed this to internal's stimuli. Thought process is responding to internal stimuli thought content and he appears to have distractions due to the auditory hallucinations is nonspecific and they have tended to further delineate what those hallucinations are wants help and will has signed in voluntarily. Mood and affect. He does appear depressed anxious fearful withdrawn can't sleep his focus can't concentrate. Insight and judgment to get help since he was feeling worse and was decompensating and therefore came to the hospital. Variety of voices come from everywhere. Command hallucinations but none today. Clinical interpretation and recommendations: He was on 60 mg of Geodon twice a day and still having auditory hallucinations and increases the Lamictal for his mood stabilization to 100 mg twice. Diagnoses: Schizoaffective disorder, bipolar type unstable severe at the present time. He does complain of a fair amount of anxiety and thus we'll add Cogentin 1 mg twice a day. Objective - Vital Signs Vital signs: Vital Signs Temp 98.3 F 08/07/18 06:34 Pulse 53 L 08/07/18 06:34 Resp 18 08/07/18 06:34 BP 100/55 08/07/18 06:34 Pulse Ox 95 08/06/18 06:30
[2018-08-07] MEDS: ZIPRASIDONE 60 MG CAP PO SCH (17:36)
[2018-08-07] MEDS: lamoTRIgine 100 MG TAB PO SCH (20:11)
[2018-08-07] MEDS: LORazepam 1 MG TAB PO PRN (22:49)
[2018-08-08] MEDS: NICOTINE 21MG/24HR PATCH TRANSDERM SCH (08:36)
[2018-08-08] MEDS: ZIPRASIDONE 60 MG CAP PO SCH (08:36)
[2018-08-08] MEDS: lamoTRIgine 100 MG TAB PO SCH ×2 (08:36→21:30)
[2018-08-08] MEDS: PANTOPRAZOLE 40 MG TABLET PO SCH (08:36)
[2018-08-08] MEDS: BENZTROPINE MESYLATE 1 MG TAB PO SCH ×2 (08:36→21:30)
--- NOTE | 2018-08-08 09:17 | P.PN ---
Subjective Progress Note Date: 08/08/18 Principal diagnosis: schizoaffective, bipolar severe recurrent History of present illness's had came into the emergency room on night on 08/02/2018 was seen on the and transferred to the psychiatric unit. Past medical history includes no reported medical history next The patient presents alert anxious cooperative. He is clearly responding to internal stimuli, and has lower. Extremity movement and arithmetic right foot tone. Affect is congruent flat constricted restricted and flat facies. He denies suicidal ideation at the present time. He's had auditory hallucinations with past level told to never goes away but has no visual hallucinations. There is no evidence any delusional thought content. His thought processes linear and somewhat tangential and thoughts and speech. His speech is fluent and nonpressured. His memory has deficit or short-term memory but is appropriate for intermediate long-term memory. His appearance and attitude he has a cooperative attitude during attitude during the interview but is RESPONDING to internal stimuli. Behaviors, nature and able to answer questions has abilities to be oriented to person and place difficult on time. His covert information is intact but slow he is distracted at times while being interviewed this to internal's stimuli. Thought process is responding to internal stimuli thought content and he appears to have distractions due to the auditory hallucinations is nonspecific and they have tended to further delineate what those hallucinations are wants help and will has signed in voluntarily. Mood and affect. He does appear depressed 6/10 anxious 7/10 maily due to voices . He is fearful withdrawn can't sleep his focus can't concentrate. Insight and judgment to get help since he was feeling worse and was decompensating and therefore came to the hospital. Variety of voices come from everywhere. Command hallucinations but none today. Clinical interpretation and recommendations: He was on 80 mg of Geodon twice a day and still having auditory hallucinations and increases the Lamictal for his mood stabilization to 100 mg twice. Diagnoses: Schizoaffective disorder, bipolar type unstable severe at the present time. Objective - Vital Signs Vital signs: Vital Signs Temp 97.6 F 08/08/18 06:35 Pulse 51 L 08/08/18 06:35 Resp 14 08/08/18 06:35 BP 100/54 08/08/18 06:35 Pulse Ox 95 08/06/18 06:30
[2018-08-08] MEDS: FOLIC ACID 1 MG TAB PO SCH (13:28)
[2018-08-08] MEDS: MULTIVITAMINS, THERA 1 EACH TAB PO SCH (13:28)
[2018-08-08] MEDS: THIAMINE 100 MG TAB PO SCH (13:28)
[2018-08-08] MEDS ORDERED: WATER FOR INJECTION, STERILE 10 ML IV ONE (17:23)
[2018-08-08] MEDS: LORazepam 2 MG/ML INJ IM PRN (17:23)
[2018-08-08] MEDS ORDERED: ZIPRASIDONE 20 MG VIAL IM ONE (17:23)
[2018-08-08] MEDS: ZIPRASIDONE 80 MG CAP PO SCH (21:30)
[2018-08-09] MEDS: THIAMINE 100 MG TAB PO SCH (08:21)
[2018-08-09] MEDS: lamoTRIgine 100 MG TAB PO SCH ×2 (08:21→20:15)
[2018-08-09] MEDS: MULTIVITAMINS, THERA 1 EACH TAB PO SCH (08:21)
[2018-08-09] MEDS: FOLIC ACID 1 MG TAB PO SCH (08:21)
[2018-08-09] MEDS: PANTOPRAZOLE 40 MG TABLET PO SCH (08:21)
[2018-08-09] MEDS: ZIPRASIDONE 80 MG CAP PO SCH ×2 (08:21→20:15)
[2018-08-09] MEDS: NICOTINE 21MG/24HR PATCH TRANSDERM SCH (08:21)
[2018-08-09] MEDS: BENZTROPINE MESYLATE 1 MG TAB PO SCH ×2 (08:21→20:15)
--- NOTE | 2018-08-09 09:30 | P.PN ---
Subjective Progress Note Date: 08/09/18 Principal diagnosis: schizoaffective, bipolar severe recurrent History of present illness's had came into the emergency room on night on 08/02/2018 was seen on the and transferred to the psychiatric unit. Past medical history includes no reported medical history next The patient presents alert anxious cooperative. He is clearly responding to internal stimuli, and has lower. Extremity movement and arithmetic right foot tone. Affect is congruent flat constricted restricted and flat facies. He denies suicidal ideation at the present time. He's had auditory hallucinations with past level told to never goes away but has no visual hallucinations. There is no evidence any delusional thought content. His thought processes linear and somewhat tangential and thoughts and speech. His speech is fluent and nonpressured. His memory has deficit or short-term memory but is appropriate for intermediate long-term memory. His appearance and attitude he has a cooperative attitude during attitude during the interview but is RESPONDING to internal stimuli. Behaviors, nature and able to answer questions has abilities to be oriented to person and place difficult on time. His covert information is intact but slow he is distracted at times while being interviewed this to internal's stimuli. Thought process is responding to internal stimuli thought content and he appears to have distractions due to the auditory hallucinations is nonspecific and they have tended to further delineate what those hallucinations are wants help and will has signed in voluntarily. Mood and affect. He does appear depressed 6/10 anxious 7/10 mainly due to voices . He is fearful withdrawn can't sleep his focus can't concentrate. Insight and judgment to get help since he was feeling worse and was decompensation and therefore came to the hospital. Variety of voices come from everywhere. Command hallucinations but none today. Clinical interpretation and recommendations: He was on 80 mg of Geodon twice a day plus 20 mg po bid and still having auditory hallucinations and increases the Lamictal for his mood stabilization to 200 mg twice a day.. Diagnoses: Schizoaffective disorder, bipolar type unstable severe at the present time. Objective - Vital Signs Vital signs: Vital Signs Temp 97.6 F 08/08/18 06:35 Pulse 113 H 08/09/18 05:08 Resp 16 08/09/18 05:08 BP 129/63 08/09/18 05:08 Pulse Ox 95 08/06/18 06:30
[2018-08-09] MEDS ORDERED: PROMETHAZINE 25 MG TAB PO PRN (14:27)
[2018-08-09] MEDS: LORazepam 1 MG TAB PO PRN (23:41)
[2018-08-10] MEDS: NICOTINE 21MG/24HR PATCH TRANSDERM SCH (07:59)
[2018-08-10] MEDS: ZIPRASIDONE 80 MG CAP PO SCH (07:59)
[2018-08-10] MEDS: lamoTRIgine 100 MG TAB PO SCH ×2 (07:59→20:28)
[2018-08-10] MEDS: BENZTROPINE MESYLATE 1 MG TAB PO SCH ×2 (07:59→20:28)
[2018-08-10] MEDS: PANTOPRAZOLE 40 MG TABLET PO SCH (08:00)
[2018-08-10] MEDS: LORazepam 1 MG TAB PO PRN ×2 (09:52→23:47)
[2018-08-10] MEDS: FOLIC ACID 1 MG TAB PO SCH (12:28)
[2018-08-10] MEDS: MULTIVITAMINS, THERA 1 EACH TAB PO SCH (12:28)
[2018-08-10] MEDS: THIAMINE 100 MG TAB PO SCH (12:28)
--- NOTE | 2018-08-10 13:00 | P.PN ---
Subjective Progress Note Date: 08/10/18 Principal diagnosis: schizoaffective, bipolar severe recurrent History of present illness's had came into the emergency room on night on 08/02/2018 was seen on the and transferred to the psychiatric unit. Past medical history includes no reported medical history next Today the voices are still bad and disrupting to his sleep. Went over medications that he had on outpatient and prolixin worked the best. The patient presents alert anxious cooperative. He is clearly responding to internal stimuli, and has lower. Extremity movement and arithmetic right foot tone. Affect is congruent flat constricted restricted and flat facies. He denies suicidal ideation at the present time. He's had auditory hallucinations with past level told to never goes away but has no visual hallucinations. There is no evidence any delusional thought content. His thought processes linear and somewhat tangential and thoughts and speech. His speech is fluent and nonpressured. His memory has deficit or short-term memory but is appropriate for intermediate long-term memory. His appearance and attitude he has a cooperative attitude during attitude during the interview but is RESPONDING to internal stimuli. Behaviors, nature and able to answer questions has abilities to be oriented to person and place difficult on time. His covert information is intact but slow he is distracted at times while being interviewed this to internal's stimuli. Thought process is responding to internal stimuli thought content and he appears to have distractions due to the auditory hallucinations is nonspecific and they have tended to further delineate what those hallucinations are wants help and will has signed in voluntarily. Mood and affect. He does appear depressed 6/10 anxious 7/10 mainly due to voices . He is fearful withdrawn can't sleep his focus can't concentrate. Insight and judgment to get help since he was feeling worse and was decompensation and therefore came to the hospital. Variety of voices come from everywhere. Command hallucinations but none today. Clinical interpretation and recommendations: He was on 80 mg of Geodon twice a day plus 20 mg po bid and is now stopped and changed to prolixin with prn as orderdand still having auditory hallucinations and increases the Lamictal for his mood stabilization to 200 mg twice a day. Add Lexpro 10. Diagnoses: Schizoaffective disorder, bipolar type unstable severe at the present time. Objective - Vital Signs Vital signs: Vital Signs Temp 98.3 F 09/21/18 06:37 Pulse 72 08/10/18 06:37 Resp 20 08/10/18 06:37 BP 104/54 08/10/18 06:37 Pulse Ox 95 08/06/18 06:30
[2018-08-11] MEDS: flUPHENAZine 2.5 MG/ML (MDV) 10 ML VIAL IM PRN (05:58)
[2018-08-11] MEDS: NICOTINE 21MG/24HR PATCH TRANSDERM SCH (07:49)
[2018-08-11] MEDS: ESCITALOPRAM 10 MG TAB PO SCH (07:49)
[2018-08-11] MEDS: PANTOPRAZOLE 40 MG TABLET PO SCH (07:49)
[2018-08-11] MEDS: BENZTROPINE MESYLATE 1 MG TAB PO SCH ×2 (07:50→20:11)
[2018-08-11] MEDS: lamoTRIgine 100 MG TAB PO SCH ×2 (07:50→20:11)
--- NOTE | 2018-08-11 08:41 | P.PN ---
Progress Note - Text Interval history: The patient is found seated by the dining room. He follows me to an interview room. The patient is known to me from a prior admission from this past May. He is known to have schizoaffective disorder. The patient indicates that he did not sleep well last night because of auditory hallucinations. He states that yesterday they were commanding in nature but not directing self-harm or harm to others. He states he would give him commands such as "go to the bathroom". Today he states he is experiencing conversations but nothing derogatory in terms of auditory hallucinations. He is reporting no visual hallucinations. He states that he can be agitated at times but he has no thoughts of harming others. He has been eating he has been selectively attending groups. We reviewed his psychotropic medications. He continues to be on Prolixin and we discussed that that dose could be titrated further if needed for symptoms of psychosis. Mental status exam: The patient is a cooperative male appearing his stated age. He is dressed in his own clothing hygiene grooming appear adequate. He seated in a chair he does shake his legs throughout the session. Eye contact is appropriate. He indicates he has a frustrated irritable mood affect is constricted. He demonstrates no verbal or physical aggressiveness. He is reporting auditory hallucinations that are noncommanding today. He is reporting no visual hallucinations. He states he does feel hopeless at times when the hallucinations. He indicates having no acute suicidal ideation intent or plan. He reports having no homicidal ideation intent or plan. Thought process is fairly linear he demonstrates no tangential thinking loose associations or flight of ideas. Plan: The patient will continue on his current psychotropic medications. We discussed that Prolixin is the only antipsychotic medication that he is on and that this dose could be titrated. He feels he needs more time to adjust other medication changes first. We will monitor him for safety he is encouraged to participate in the milieu. Vital signs reviewed.
[2018-08-11] MEDS: FOLIC ACID 1 MG TAB PO SCH (12:18)
[2018-08-11] MEDS: MULTIVITAMINS, THERA 1 EACH TAB PO SCH (12:18)
[2018-08-11] MEDS: THIAMINE 100 MG TAB PO SCH (12:18)
[2018-08-11] MEDS: LORazepam 2 MG/ML INJ IM PRN (21:48)
[2018-08-12] MEDS: BENZTROPINE MESYLATE 1 MG TAB PO SCH ×2 (07:33→20:06)
[2018-08-12] MEDS: NICOTINE 21MG/24HR PATCH TRANSDERM SCH (07:33)
[2018-08-12] MEDS: lamoTRIgine 100 MG TAB PO SCH ×2 (07:33→20:06)
[2018-08-12] MEDS: ESCITALOPRAM 10 MG TAB PO SCH (07:34)
[2018-08-12] MEDS: PANTOPRAZOLE 40 MG TABLET PO SCH (07:34)
[2018-08-12] MEDS: LORazepam 1 MG TAB PO PRN ×2 (07:50→22:20)
--- NOTE | 2018-08-12 11:25 | P.PN ---
Progress Note - Text Interval history: The patient is found in the hallway he follows me to an interview room. He reports that his mood is better today. He feels less anxious and less depressed. He states auditory hallucinations have been much improved today. There is no commanding nature and he is only hearing sounds. He states that he slept last night staff recorded he slept 6 hours. Appetite is stable. He is making an effort to attend groups. He has no questions or concerns regarding his psychotropic medication. Mental status exam: The patient is alert he is dressed in his own clothing. Hygiene grooming adequate. He seated in his chair calmly he demonstrates no psychomotor agitation no verbal or physical aggressiveness. He indicates his mood is better today in that he notices a reduction in depressive and anxiety symptoms. He has auditory hallucinations that are noncommanding states they have improved to where he is just hearing noise. He is reporting no visual hallucination. He is reporting no suicidal or homicidal ideation intent or plan. He is oriented to person place and date. He demonstrates no abnormal involuntary movements. Insight and judgment improving. He maintains a constricted affect. Plan: The patient will continue on his current psychotropic medication. We will monitor for safety and encourage full participation in the milieu. Vital signs are reviewed. We will monitor for any need for further titration of the Prolixin.
[2018-08-12] MEDS: MULTIVITAMINS, THERA 1 EACH TAB PO SCH (11:38)
[2018-08-12] MEDS: THIAMINE 100 MG TAB PO SCH (11:38)
[2018-08-12] MEDS: FOLIC ACID 1 MG TAB PO SCH (11:38)
[2018-08-13] MEDS: flUPHENAZine 2.5 MG/ML (MDV) 10 ML VIAL IM PRN (02:23)
[2018-08-13] MEDS: PANTOPRAZOLE 40 MG TABLET PO SCH (08:11)
[2018-08-13] MEDS: BENZTROPINE MESYLATE 1 MG TAB PO SCH ×2 (08:11→20:22)
[2018-08-13] MEDS: NICOTINE 21MG/24HR PATCH TRANSDERM SCH (08:11)
[2018-08-13] MEDS: lamoTRIgine 100 MG TAB PO SCH ×2 (08:11→20:22)
[2018-08-13] MEDS: ESCITALOPRAM 10 MG TAB PO SCH (08:11)
--- NOTE | 2018-08-13 12:18 | P.PN ---
Subjective Progress Note Date: 08/13/18 Principal diagnosis: schizoaffective, bipolar severe recurrent History of present illness's had came into the emergency room on night on 08/02/2018 was seen on the and transferred to the psychiatric unit. Past medical history includes no reported medical history next Today the voices are still bad and disrupting to his sleep. Went over medications that he had on outpatient and prolixin worked the best. The patient presents alert anxious cooperative. He is clearly responding to internal stimuli, and has lower. Extremity movement and arithmetic right foot tone. Affect is congruent flat constricted restricted and flat facies. He denies suicidal ideation at the present time. He's had auditory hallucinations with past level told to never goes away but has no visual hallucinations. There is no evidence any delusional thought content. His thought processes linear and somewhat tangential and thoughts and speech. His speech is fluent and nonpressured. His memory has deficit or short-term memory but is appropriate for intermediate long-term memory. His appearance and attitude he has a cooperative attitude during attitude during the interview but is RESPONDING to internal stimuli. Behaviors, nature and able to answer questions has abilities to be oriented to person and place difficult on time. His covert information is intact but slow he is distracted at times while being interviewed this to internal's stimuli. Thought process is responding to internal stimuli thought content and he appears to have distractions due to the auditory hallucinations is nonspecific and they have tended to further delineate what those hallucinations are wants help and will has signed in voluntarily. Mood and affect. He does appear depressed 2/10 anxious 5/10 mainly due to voices . Insight and judgment to get help since he was feeling worse and was decompensation and therefore came to the hospital. States the food is stiffly better than in [facility] and feels the staff is helping him. Variety of voices come from everywhere. Command hallucinations but none today. Clinical interpretation and recommendations: Changed to prolixin and now titrated to 7.5 mg po qhs; Cogentin 2 mg twice a day, Lamictal changed just at bedtime for mood stability and Lexapro 15 mg at bedtime . Diagnoses: Schizoaffective disorder, bipolar type unstable severe at the present time. Objective - Vital Signs Vital signs: Vital Signs Temp 97.5 F L 08/13/18 06:02 Pulse 76 08/13/18 06:02 Resp 16 09/24/18 06:02 BP 113/70 08/13/18 06:02 Pulse Ox 95 08/06/18 06:30 Intake & Output 08/12/18 08/13/18 08/13/18 18:59 06:59 18:59 Weight 72.7 kg
[2018-08-13] MEDS: MULTIVITAMINS, THERA 1 EACH TAB PO SCH (12:58)
[2018-08-13] MEDS: FOLIC ACID 1 MG TAB PO SCH (12:58)
[2018-08-13] MEDS: THIAMINE 100 MG TAB PO SCH (12:58)
[2018-08-13] MEDS ORDERED: ESCITALOPRAM 10 MG TAB PO SCH (20:00)
[2018-08-14] MEDS: LORazepam 1 MG TAB PO PRN ×3 (02:42→19:17)
[2018-08-14] MEDS: PANTOPRAZOLE 40 MG TABLET PO SCH (08:13)
[2018-08-14] MEDS: BENZTROPINE MESYLATE 1 MG TAB PO SCH ×2 (08:13→20:08)
[2018-08-14] MEDS: NICOTINE 21MG/24HR PATCH TRANSDERM SCH (08:13)
[2018-08-14] MEDS ORDERED: ESCITALOPRAM 5 MG TAB PO SCH ×2 (09:00→20:00)
--- NOTE | 2018-08-14 10:39 | P.PN ---
Subjective Progress Note Date: 08/14/18 Principal diagnosis: schizoaffective, bipolar severe recurrent History of present illness's had came into the emergency room on night on 08/02/2018 was seen on the and transferred to the psychiatric unit. Past medical history includes no reported medical history next Today the voices are still bad and disrupting to his sleep. Went over medications that he had on outpatient and prolixin worked the best. Less voices today more stable and able to have wake up but was awakened at 2:00 in the morning and took an Ativan to repeat gain sleep The patient presents alert anxious cooperative. He is clearly responding to internal stimuli, and has lower. Extremity movement and arithmetic right foot tone. Affect is congruent flat constricted restricted and flat facies. He denies suicidal ideation at the present time. He's had auditory hallucinations with past level told to never goes away but has no visual hallucinations. There is no evidence any delusional thought content. His thought processes linear and somewhat tangential and thoughts and speech. His speech is fluent and nonpressured. His memory has deficit or short-term memory but is appropriate for intermediate long-term memory. His appearance and attitude he has a cooperative attitude during attitude during the interview but is RESPONDING to internal stimuli. Behaviors, nature and able to answer questions has abilities to be oriented to person and place difficult on time. His covert information is intact but slow he is distracted at times while being interviewed this to internal's stimuli. Thought process is responding to internal stimuli thought content and he appears to have distractions due to the auditory hallucinations is nonspecific and they have tended to further delineate what those hallucinations are wants help and will has signed in voluntarily. Mood and affect is becoming more stable. He does appear depressed 2/10 anxious 3/10 mainly due to voices have decreased in speciality to Without voices. Insight and judgment to get help since he was feeling worse and was decompensation and therefore came to the hospital. States the food is stiffly better than in nursing home and feels the staff is helping him. Variety of voices come from everywhere. Command hallucinations but none today. Clinical interpretation and recommendations: Changed to prolixin and now titrated to 10 mg po qhs; Cogentin 2 mg twice a day, Lamictal changed just at bedtime for mood stability and Lexapro 15 mg at bedtime . Diagnoses: Schizoaffective disorder, bipolar type unstable severe at the present time. Objective - Vital Signs Vital signs: Vital Signs Temp 97.7 F 08/14/18 02:43 Pulse 65 08/14/18 02:43 Resp 18 08/14/18 02:43 BP 112/69 08/14/18 02:43 Pulse Ox 95 08/06/18 06:30
[2018-08-14] MEDS: FOLIC ACID 1 MG TAB PO SCH (12:58)
[2018-08-14] MEDS: THIAMINE 100 MG TAB PO SCH (12:58)
[2018-08-14] MEDS: MULTIVITAMINS, THERA 1 EACH TAB PO SCH (12:58)
[2018-08-14] MEDS: lamoTRIgine 100 MG TAB PO SCH (19:16)
[2018-08-14 19:21] VITALS: RESP 18
[2018-08-14] MEDS ORDERED: ESCITALOPRAM 10 MG TAB PO SCH (20:00)
[2018-08-15] MEDS: LORazepam 1 MG TAB PO PRN ×2 (05:38→17:14)
[2018-08-15] MEDS: PANTOPRAZOLE 40 MG TABLET PO SCH (07:41)
[2018-08-15] MEDS: NICOTINE 21MG/24HR PATCH TRANSDERM SCH (07:41)
[2018-08-15] MEDS: BENZTROPINE MESYLATE 1 MG TAB PO SCH ×2 (07:41→20:06)
--- NOTE | 2018-08-15 11:26 | P.PN ---
Subjective Progress Note Date: 08/15/18 Principal diagnosis: schizoaffective, bipolar severe recurrent History of present illness's had came into the emergency room on night on 08/02/2018 was seen on the and transferred to the psychiatric unit. Past medical history includes no reported medical history next Today the voices are still bad and disrupting to his sleep. Went over medications that he had on outpatient and prolixin worked the best. Less voices today more stable and able to have wake up but was awakened at 2:00 in the morning and now is sleeping with minimal interruption. The patient presents alert anxious cooperative. He is clearly responding to internal stimuli, and has lower. Extremity movement and arithmetic right foot tone. Affect is congruent flat constricted restricted and flat facies. He denies suicidal ideation at the present time. He's had auditory hallucinations with past level told to never goes away but has no visual hallucinations. There is no evidence any delusional thought content. His thought processes linear and somewhat tangential and thoughts and speech. His speech is fluent and nonpressured. His memory has deficit or short-term memory but is appropriate for intermediate long-term memory. His appearance and attitude he has a cooperative attitude during attitude during the interview but is RESPONDING to internal stimuli. Behaviors, nature and able to answer questions has abilities to be oriented to person and place difficult on time. His covert information is intact but slow he is distracted at times while being interviewed this to internal's stimuli. Thought process is responding to internal stimuli thought content and he appears to have distractions due to the auditory hallucinations is nonspecific and they have tended to further delineate what those hallucinations are wants help and will has signed in voluntarily. Mood and affect is becoming more stable. He does appear depressed 2/10 anxious 3/10 mainly due to voices have decreased in speciality to Without voices. Insight and judgment to get help since he was feeling worse and was decompensation and therefore came to the hospital. States the food is stiffly better than in [facility] and feels the staff is helping him. Variety of voices come from everywhere. Command hallucinations but none today. Clinical interpretation and recommendations: Changed to prolixin and now titrated to 10 mg po qhs; Cogentin 2 mg twice a day, Lamictal changed just at bedtime for mood stability and Lexapro 20 mg po q1 pm; added prolixin deconate tomorrow . Clean and healthy life style. Exercising, writing and go to forward air controller/air officer. Diagnoses: Schizoaffective disorder, bipolar type unstable severe at the present time. Objective - Vital Signs Vital signs: Vital Signs Temp 97.6 F 08/15/18 06:11 Pulse 66 08/15/18 06:11 Resp 18 08/15/18 06:11 BP 110/63 08/15/18 06:11 Pulse Ox 95 08/06/18 06:30 - Constitutional General appearance: Present: average body habitus - EENT Eyes: Present: EOMI, PERRLA Ears: bilateral: normal - Neck Neck: Present: normal ROM - Respiratory Respiratory: bilateral: CTA - Cardiovascular Rhythm: regular Heart sounds: normal: S1, S2 - Neurologic Neurologic: Present: CNII-XII intact - Musculoskeletal Musculoskeletal: Present: gait normal - Psychiatric Psychiatric: Present: A&O x's 3 Assessment and Plan (1) Acute psychosis Current Visit: No Status: Chronic Priority: Low Code(s): F23 - BRIEF PSYCHOTIC DISORDER SNOMED Code(s): 70069363 (2) Schizoaffective disorder Current Visit: No Status: Resolved Priority: Low Code(s): F25.9 - SCHIZOAFFECTIVE DISORDER, UNSPECIFIED SNOMED Code(s): 17133168 Plan: discharge on Monday
[2018-08-15] MEDS: THIAMINE 100 MG TAB PO SCH (12:09)
[2018-08-15] MEDS: ESCITALOPRAM 20 MG TAB PO SCH (12:09)
[2018-08-15] MEDS: FOLIC ACID 1 MG TAB PO SCH (12:09)
[2018-08-15] MEDS: MULTIVITAMINS, THERA 1 EACH TAB PO SCH (12:09)
[2018-08-15 14:00] VITALS: BMI 25.1
[2018-08-15] MEDS: lamoTRIgine 100 MG TAB PO SCH (20:05)
[2018-08-16] MEDS: LORazepam 1 MG TAB PO PRN ×2 (05:04→16:16)
[2018-08-16] MEDS: ESCITALOPRAM 20 MG TAB PO SCH (07:39)
[2018-08-16] MEDS: NICOTINE 21MG/24HR PATCH TRANSDERM SCH (07:39)
[2018-08-16] MEDS: BENZTROPINE MESYLATE 1 MG TAB PO SCH ×2 (07:39→20:03)
[2018-08-16] MEDS: PANTOPRAZOLE 40 MG TABLET PO SCH (07:39)
[2018-08-16] MEDS ORDERED: fluPHENAZine DECANOATE 25 MG/ML 5ML MDV IM ONE (09:00)
--- NOTE | 2018-08-16 11:11 | P.PN ---
Subjective Progress Note Date: 08/16/18 Principal diagnosis: schizoaffective, bipolar severe recurrent History of present illness's had came into the emergency room on night on 08/02/2018 was seen on the and transferred to the psychiatric unit. Past medical history includes no reported medical history next Today the voices are still bad and disrupting to his sleep. Went over medications that he had on outpatient and prolixin worked the best. Less voices today more stable and able to have wake up but was awakened at 2:00 in the morning and now is sleeping with minimal interruption. The patient presents alert anxious cooperative. He is clearly responding to internal stimuli, and has lower. Extremity movement and arithmetic right foot tone. Affect is congruent flat constricted restricted and flat facies. He denies suicidal ideation at the present time. He's had auditory hallucinations with past level told to never goes away but has no visual hallucinations. There is no evidence any delusional thought content. His thought processes linear and somewhat tangential and thoughts and speech. His speech is fluent and nonpressured. His memory has deficit or short-term memory but is appropriate for intermediate long-term memory. His appearance and attitude he has a cooperative attitude during attitude during the interview but is RESPONDING to internal stimuli. Behaviors, nature and able to answer questions has abilities to be oriented to person and place difficult on time. His covert information is intact but slow he is distracted at times while being interviewed this to internal's stimuli. Thought process is responding to internal stimuli thought content and he appears to have distractions due to the auditory hallucinations is nonspecific and they have tended to further delineate what those hallucinations are wants help and will has signed in voluntarily. Mood and affect is becoming more stable. He does appear depressed 2/10 anxious 3/10 mainly due to voices have decreased in speciality to Without voices. Insight and judgment to get help since he was feeling worse and was decompensation and therefore came to the hospital. States the food is stiffly better than in group home and feels the staff is helping him. Variety of voices come from everywhere. Command hallucinations but none today. Clinical interpretation and recommendations: Changed to prolixin and now titrated to 10 mg po qhs; Cogentin 2 mg twice a day, Lamictal changed just at bedtime for mood stability and Lexapro 20 mg po q1 pm; added prolixin deconate 37.5 mg . Clean and healthy life style. Exercising, writing and go to food safety officer. Diagnoses: Schizoaffective disorder, bipolar type unstable severe at the present time. Objective - Vital Signs Vital signs: Vital Signs Temp 97.7 F 08/16/18 06:17 Pulse 63 08/16/18 06:17 Resp 18 08/16/18 06:17 BP 103/61 08/16/18 06:17 Pulse Ox 95 08/06/18 06:30 Intake & Output 08/15/18 08/16/18 08/16/18 18:59 06:59 18:59 Weight 72.7 kg - Constitutional General appearance: Present: average body habitus - EENT Eyes: Present: PERRLA Ears: left: normal - Neck Carotids: bilateral: upstroke normal - Neurologic Neurologic: Present: CNII-XII intact - Psychiatric Psychiatric: Present: A&O x's 3, appropriate affect, intact judgment & insight - Allied health notes Allied health notes reviewed: RT Assessment and Plan (1) Acute psychosis Current Visit: No Status: Chronic Priority: Low Code(s): F23 - BRIEF PSYCHOTIC DISORDER SNOMED Code(s): 28899819 (2) Schizoaffective disorder Current Visit: No Status: Resolved Priority: Low Code(s): F25.9 - SCHIZOAFFECTIVE DISORDER, UNSPECIFIED SNOMED Code(s): 86035257 Plan: discharge on Monday
[2018-08-16] MEDS: THIAMINE 100 MG TAB PO SCH (13:05)
[2018-08-16] MEDS: MULTIVITAMINS, THERA 1 EACH TAB PO SCH (13:05)
[2018-08-16] MEDS: FOLIC ACID 1 MG TAB PO SCH (13:05)
[2018-08-16] MEDS: lamoTRIgine 100 MG TAB PO SCH (20:02)
[2018-08-17 05:25] VITALS: BP 109/65; PULSE 66; TEMP 98.2
[2018-08-17] MEDS: NICOTINE 21MG/24HR PATCH TRANSDERM SCH (08:12)
[2018-08-17] MEDS: ESCITALOPRAM 20 MG TAB PO SCH (08:12)
[2018-08-17] MEDS: PANTOPRAZOLE 40 MG TABLET PO SCH (08:12)
[2018-08-17] MEDS: BENZTROPINE MESYLATE 1 MG TAB PO SCH (08:12)
--- NOTE | 2018-08-21 17:25 | P.DS ---
Providers Date of admission: 08/03/18 13:19 Expected date of discharge: 08/17/18 Attending physician: Aneesh Melo DO Consults: 08/03/18 13:56 Consult Physician Routine Consulting Provider: Yordy Jj Consult Reason/Comments: medical care Do you want consulting provider notified?: Yes Primary care physician: Gerry Fernandez - Discharge Diagnosis(es) (1) Acute psychosis Current Visit: No Status: Chronic Priority: Low (2) Schizoaffective disorder Current Visit: No Status: Resolved Priority: Low Hospital Course: Identifying Information: [Chief complaint this 33-year-old male with a past medical history of psychiatric disease and alcohol abuse presents with memory issues and hallucinations.] Chief Complaint and Reason for Hospitalization: [He is treated by a local community mental health physician Dr. Ramirez is now left. He has had complaints about his medications and has had no changes. He is consistently upset that one hospitals or change here at the hospital and he still Deidra goes back many mental health he tends to have different medications. He is anxious with feet moving during the interview and cooperative and relates a long history of mental illness for the last 1112 years he lives alone and his mother and father are supportive. Mother and father are and he lived the first part of his life with his mother and on second part of his life with his father. There is no other mental illness in his family. 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 His unable to focus and concentrate and has decreased memory and inability to focus to work. Last 2 days since had difficulty with voices agitation and anxiety in her car additional medications. History of present illness's had came into the emergency room on night on 08/02/2018 was seen on the and transferred to the psychiatric unit. Past medical history includes no reported medical history next ] Course of Treatment: [The patient presents alert anxious cooperative. He is clearly responding to internal stimuli, and has lower. Extremity movement and arithmetic right foot tone. Affect is congruent flat constricted restricted and flat facies. He denies suicidal ideation at the present time. He's had auditory hallucinations with past level told to never goes away but has no visual hallucinations. There is no evidence any delusional thought content. His thought processes linear and somewhat tangential and thoughts and speech. His speech is fluent and nonpressured. His memory has deficit or short-term memory but is appropriate for intermediate long-term memory. His appearance and attitude he has a cooperative attitude during attitude during the interview but is RESPONDING to internal stimuli. Behaviors, nature and able to answer questions has abilities to be oriented to person and place difficult on time. His covert information is intact but slow he is distracted at times while being interviewed this to internal's stimuli. Thought process is responding to internal stimuli thought content and he appears to have distractions due to the auditory hallucinations is nonspecific and they have tended to further delineate what those hallucinations are wants help and will has signed in voluntarily. Mood and affect is becoming more stable. He does appear depressed 2/10 anxious / mainly due to voices have decreased in speciality to Without voices. Insight and judgment to get help since he was feeling worse and was decompensation and therefore came to the hospital. States the food is stiffly better than in residential and feels the staff is helping him. Variety of voices come from everywhere. Command hallucinations but none today. Clinical interpretation and recommendations: Changed to prolixin and now titrated to 10 mg po qhs; Cogentin 2 mg twice a day, Lamictal changed just at bedtime for mood stability and Lexapro 20 mg po q1 pm; added prolixin deconate 37.5 mg . Clean and healthy life style. Exercising, writing and go to mortgage loan officer. Diagnoses: Schizoaffective disorder, bipolar type unstable severe at the present time.] Physical/Medical Condition on Discharge:[ Stable] The patient presents alert, pleasant, and cooperative. There calmly seated without any agitated behavior. [He reports that [his] mood is good. Affect is congruent and euthymic. [He] deny having any suicidal or homicidal ideation intent or plan. [He] denies any auditory or visual hallucinations. There is no evidence of any delusional thought content. [His] thought process is linear and goal-directed. [Is] speech is fluent and nonpressured. [His] memory and concentration is grossly intact for the purposes of this session. Functional Condition on Discharge: [Stable] Discharge Medications: [Occasions listed below] Number of Routinely Scheduled Antipsychotic Medication(s) Prescribed: [Only one antipsychotic written at the time of discharge] Appropriate Justification for discharging the Patient on Two or More Antipsychotic Medications: [1 antipsychotic] Discharge Diagnosis: [Schizoaffective bipolar type unstable at the time of discharge] Risk Factors: [Smoking cigarettes, marijuana, alcohol, cocaine] Recommendations/Follow-up/Aftercare: [Follow-up community mental health and have a therapist and hopefully what should happen for necklaces and he returns to work at some point.] Patient Condition at Discharge: Stable Plan - Discharge Summary New Discharge Prescriptions: No Action Escitalopram [Lexapro] 10 mg PO DAILY #10 tab OLANZapine 20 mg PO HS #30 tablet Folic Acid 1 mg PO DAILY #1 tablet Multivitamins, Thera [Multivitamin (formulary)] 1 tab PO DAILY #1 tablet Pantoprazole [Protonix] 40 mg PO AC-BRKFST tablet. Temazepam [Restoril] 15 mg PO HS PRN cap PRN Reason: Insomnia Thiamine [Vitamin B-1] 100 mg PO DAILY #1 tablet Discharge Medication List Escitalopram [Lexapro] 10 mg PO DAILY #10 tab 06/22/18 [Rx] OLANZapine 20 mg PO HS #30 tablet 06/22/18 [Rx] Folic Acid 1 mg PO DAILY #1 tablet 08/03/18 [Rx] Multivitamins, Thera [Multivitamin (formulary)] 1 tab PO DAILY #1 tablet [Rx] Pantoprazole [Protonix] 40 mg PO AC-BRKFST tablet. 08/03/18 [Rx] Temazepam [Restoril] 15 mg PO HS PRN cap 08/03/18 [Rx] Thiamine [Vitamin B-1] 100 mg PO DAILY #1 tablet 08/03/18 [Rx]
== END 2018-08-17 11:33 | disposition home or self-care (01) | DRG 885 ==
LOC: 3MHU 13:19
PROVIDERS: ADMIT Psychiatry & Neurology Psychiatry; ATTEND Psychiatry & Neurology Psychiatry
DX: F25.0 Schizoaffective disorder, bipolar type (principal); F10.231 Alcohol dependence with withdrawal delirium; R45.851 Suicidal ideations; F41.9 Anxiety disorder, unspecified; F17.200 Nicotine dependence, unspecified, uncomplicated; F15.11 Other stimulant abuse, in remission; Z60.2 Problems related to living alone; Z71.6 Tobacco abuse counseling; Z71.51 Drug abuse counseling and surveillance of drug abuser
CPT/HCPCS: 80175

== ENCOUNTER 2019-03-12 14:52 | Emergency (ER) | payer MEDICARE, OTHER ==
--- NOTE | 2019-03-12 15:34 | ED ---
General Adult HPI <Haider Quintana - Last Filed: 03/12/19 18:24> - General Source: patient, RN notes reviewed Mode of arrival: ambulatory Limitations: no limitations <Brian Melara - Last Filed: 03/12/19 18:49> - General Chief complaint: Psychiatric Symptoms Stated complaint: mental health Time Seen by Provider: 03/12/19 15:20 - History of Present Illness Initial comments: 33-year-old male with a past medical history of bipolar disorder, depression, schizophrenia, schizoaffective disorder presents to the emergency department for auditory hallucinations and suicidal thoughts. Patient states he was admitted last year and symptoms were controlled by medication at that time. Patient states that over the past 4 months symptoms have been worsening. He states that at this time he is hearing voices that are telling him to kill himself. He states they're telling him to overdose on pills or heroin. Patient does admit to a history of IV drug abuse but states he is no longer doing this. Patient states he is concerned about these voices and feels he needs to be admitted inpatient to have them controlled with medication adjustments. Patient denies any homicidal thoughts.Patient has no other complaints at this time including shortness of breath, chest pain, abdominal pain, nausea or vomiting, headache, or visual changes. (Brian Melara) - Related Data Home Medications Medication Instructions Recorded Confirmed fluPHENAZine DECANOATE [Prolixin 75 mg IM [id number] 08/17/18 03/12/19 Decanoate] Trihexyphenidyl HCl 7.5 mg PO TID 03/12/19 03/12/19 lamoTRIgine [LaMICtal] 200 mg PO HS 03/12/19 03/12/19 Previous Rx's Medication Instructions Recorded Escitalopram [Lexapro] 20 mg PO DAILY #30 tab 08/17/18 Allergies Allergy/AdvReac Type Severity Reaction Status Date / Time haloperidol [From Haldol] Allergy Unknown Verified 03/12/19 15:51 haloperidol lactate Allergy Unknown Verified 03/12/19 15:51 [From Haldol] Review of Systems ROS Other: All systems not noted in ROS Statement are negative. <Haider Quintana - Last Filed: 03/12/19 18:24> ROS Other: All systems not noted in ROS Statement are negative. <Brian Melara - Last Filed: 03/12/19 18:49> ROS Statement: Those systems with pertinent positive or pertinent negative responses have been documented in the HPI. Past Medical History Past Medical History: No Reported History Additional Past Medical History / Comment(s): bipolar depression,schizophrenia, schizoaffective disorder, pt stated has had c/p in past but denies ant stress test or heart cath. past abd hernia(sx), "hep b" History of Any Multi-Drug Resistant Organisms: None Reported Past Surgical History: Hernia Repair Additional Past Surgical History / Comment(s): pt stated had hernia repair but not sure where he had it done at or the dr that did it Past Anesthesia/Blood Transfusion Reactions: No Reported Reaction Past Psychological History: Bipolar, Depression, Schizoaffective Disorder, Schizophrenia Smoking Status: Current every day smoker Past Alcohol Use History: Daily Past Drug Use History: Cocaine, Marijuana, Methamphetamine - Past Family History Father Family Medical History: No Reported History Mother Family Medical History: No Reported History Additional Family Medical History / Comment(s): anxiety, crohns disease. <Brian Melara - Last Filed: 03/12/19 18:49> General Exam Limitations: no limitations General appearance: alert Head exam: Present: atraumatic, normocephalic, normal inspection Eye exam: Present: normal appearance, PERRL, EOMI. Absent: scleral icterus, conjunctival injection, periorbital swelling ENT exam: Present: normal exam, mucous membranes moist Neck exam: Present: normal inspection, full ROM. Absent: tenderness, meningismus, lymphadenopathy Respiratory exam: Present: normal lung sounds bilaterally. Absent: respiratory distress, wheezes, rales, rhonchi, stridor Cardiovascular Exam: Present: regular rate, normal rhythm, normal heart sounds. Absent: systolic murmur, diastolic murmur, rubs, gallop, clicks Neurological exam: Present: alert, oriented X3, CN II-XII intact Psychiatric exam: Present: anxious, suicidal ideation. Absent: homicidal ideation <Brian Melara - Last Filed: 03/12/19 18:49> Course Vital Signs 03/12/19 15:04 Temperature 98.3 F Pulse Rate 81 Respiratory 18 Rate Blood Pressure 129/78 O2 Sat by Pulse 98 Oximetry Medical Decision Making <Haider Quintana - Last Filed: 03/12/19 18:24> <Brian Melara - Last Filed: 03/12/19 18:49> - Medical Decision Making Patient reevaluated by myself, Dr. Quintana. Patient resting comfortably in bed. Patient admits to having auditory hallucinations and suicidal thoughts. Patient does have previous history of self harm in the past. Patient does have plan. Positive clinical certificate completed. (Haider Quintana) 33-year-old male presents with a significant psychiatric history for a chief complaint of auditory hallucinations and suicidal thoughts. Patient is hearing voices that are telling him to kill himself. Patient was evaluated by EPS, recommending inpatient admission. There are no beds at this time. Patient will transferred. Patient was certed by Dr. Quintana. (Brian Melara) - Lab Data Lab Results 03/12/19 Range/Units 15:54 Urine Opiates Screen Not Detected (NotDetected) Ur Oxycodone Screen Not Detected (NotDetected) Urine Methadone Screen Not Detected (NotDetected) Ur Propoxyphene Screen Not Detected (NotDetected) Ur Barbiturates Screen Not Detected (NotDetected) U Tricyclic Antidepress Not Detected (NotDetected) Ur Phencyclidine Scrn Not Detected (NotDetected) Ur Amphetamines Screen Not Detected (NotDetected) U Methamphetamines Scrn Not Detected (NotDetected) U Benzodiazepines Scrn Not Detected (NotDetected) Urine Cocaine Screen Not Detected (NotDetected) U Marijuana (THC) Screen Not Detected (NotDetected) Disposition Is patient prescribed a controlled substance at d/c from ED?: No Time of Disposition: 18:25 <Haider Quintana - Last Filed: 03/12/19 18:24> <Brian Melara - Last Filed: 03/12/19 18:49> Clinical Impression: Schizo-affective psychosis, Suicidal ideation Disposition: TRANSFER TO PSYCH HOSP/UNIT Referrals: Gerry Fernandez MD [Primary Care Provider] - 1-2 days
[2019-03-12 16:35] LABS: Amphetamine Screen,Urine Not Detected (NotDetected); Barbiturate Screen,Urine Not Detected (NotDetected); Benzodiazepines Screen,Urine Not Detected (NotDetected); Cocaine Screen,Urine Not Detected (NotDetected); Methadone Screen, Urine Not Detected (NotDetected); Opiate Screen,Urine Not Detected (NotDetected); Oxycodone Screen, Urine Not Detected (NotDetected); Phencyclidine Screen,Urine Not Detected (NotDetected); Tricyclic Antidepressant,Urine Not Detected (NotDetected); Urn Cannabinoid Scrn Not Detected (NotDetected)
[2019-03-12 18:49] LABS: HCT 40.9 % (39.0-53.0); HGB 14.8 gm/dL (13.0-17.5); MCH 32.8 pg (25.0-35.0); MCHC 36.3 g/dL (31.0-37.0); MCV 90.5 fL (80.0-100.0); Mean Platelet Volume 7.7; Platelet Count 194 k/uL (150-450); RBC 4.52 m/uL (4.30-5.90); WBC 8.2 k/uL (3.8-10.6)
[2019-03-12 19:01] LABS: ALT 27 U/L (21-72); AST 30 U/L (17-59); Alkaline Phosphatase 47 U/L (38-126); Anion Gap 6 mmol/L; Blood Urea Nitrogen 7 mg/dL (9-20); Calcium 9.4 mg/dL (8.4-10.2); Carbon Dioxide 26 mmol/L (22-30); Chloride 105 mmol/L (98-107); Glucose 107 mg/dL (74-99); Potassium 3.8 mmol/L (3.5-5.1); Sodium 137 mmol/L (137-145); Total Bilirubin 0.7 mg/dL (0.2-1.3)
[2019-03-13 06:31] VITALS: BP 123/81; PULSE 68; RESP 16; TEMP 98.3
== END 2019-03-13 06:54 ==
LOC: EC 14:52
DX: F25.9 Schizoaffective disorder, unspecified (principal); R45.851 Suicidal ideations; F31.9 Bipolar disorder, unspecified; F17.200 Nicotine dependence, unspecified, uncomplicated; Z79.899 Other long term (current) drug therapy; Z88.8 Allergy status to other drugs, medicaments and biological substances
CPT/HCPCS: 36415; 80053; 80306; 82075; 85027; 99285